=== PATIENT | female | born 1975 | race Caucasian/White ===

== ENCOUNTER → 2016-06-16 | Outpatient (CLI) | payer BC, OTHER ==
[2016-06-16 12:03] LABS: ALT 29 U/L (9-52); AST 23 U/L (14-36); Alkaline Phosphatase 80 U/L (38-126); Anion Gap 10 mmol/L; Blood Urea Nitrogen 12 mg/dL (7-17); Calcium 9.5 mg/dL (8.4-10.2); Carbon Dioxide 25 mmol/L (22-30); Chloride 105 mmol/L (98-107); Cholesterol 148 mg/dL (<200); Glucose 85 mg/dL (74-99); HDL Cholesterol 20 mg/dL (40-60); Non-African American GFR(MDRD) >60 (>60 ml/min/1.73 sqM); Potassium 4.6 mmol/L (3.5-5.1); Sodium 140 mmol/L (137-145); Total Bilirubin 0.7 mg/dL (0.2-1.3); Total Protein 7.1 g/dL (6.3-8.2); Triglycerides 267 mg/dL (<150)
[2016-06-16 12:19] LABS: CH 32.2; CHCM 36.4; HCT 44.7 % (34.0-46.0); HDW 3.06; HGB 15.7 gm/dL (11.4-16.0); MCH 31.2 pg (25.0-35.0); MCHC 35.2 g/dL (31.0-37.0); MCV 88.5 fL (80.0-100.0); Mean Platelet Volume 8.6; RBC 5.05 m/uL (3.80-5.40); WBC 11.1 k/uL (3.8-10.6)
== END | disposition home or self-care (01) ==
LOC: LABWHC1 11:03
PROVIDERS: ATTEND Internal Medicine Clinical Cardiac Electrophysiology
DX: E78.5 Hyperlipidemia, unspecified (principal); R00.2 Palpitations; R63.5 Abnormal weight gain
CPT/HCPCS: 36415; 80053; 80061; 84443; 85027

== ENCOUNTER 2016-07-21 22:13 | Emergency (ER) | payer BC, OTHER ==
[2016-07-21 22:37] VITALS: TEMP 98.7
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
[2016-07-22 00:10] VITALS: BP 140/71; PULSE 90; RESP 19
== END 2016-07-22 00:10 | disposition home or self-care (01) ==
LOC: EC 22:13
DX: T59.811A Toxic effect of smoke, accidental (unintentional), initial encounter (principal); J70.5 Respiratory conditions due to smoke inhalation; Z79.899 Other long term (current) drug therapy; Z91.048 Other nonmedicinal substance allergy status; Z87.891 Personal history of nicotine dependence
CPT/HCPCS: 71020; 82375; 99285

== ENCOUNTER → 2016-11-03 | Outpatient (CLI) | payer BC, OTHER ==
[2016-11-03 13:41] VITALS: BP 120/82; PULSE 92; RESP 16; TEMP 98.5
--- NOTE | 2016-11-03 14:08 | P.PN ---
Progress Note - Text Patient returns for followup for chronic back pain with radiation to hips. Patient recently underwent bilateral RFA last summer, which has provided some relief for interval but pain began to increase since June 2016. Patient continues on tramadol medications from PCP for pain with good relief. Patient denies adverse drug effects from medications. Today, pt denies new-onset weakness, bowel/bladder incontinence, or any other signs or symptoms of cauda equina syndrome. There are no signs of acute intoxication, and no indications of medication diversion or overuse. In addition to above, 13-point review of systems is also negative for chest pain , shortness of breath, changes in vision, changes in hearing, new onset weakness , abdominal pain, diarrhea, extreme fatigue, malaise, fever, skin changes, homicidal or suicidal ideation, or bowel or bladder incontinence. Vital Signs: Reviewed in EMR Gen: WDWN, AAOx3, NAD, obese HEENT: NCAT, EOMI, hearing grossly normal Pulm: resp unlabored Abd: soft, NT, ND Neck: supple, trachea midline ROM in flexion lumbar spine: reduced ROM in extension lumbar spine: reduced Lumbar paravertebral tenderness: + Facet loading: + bilaterally, R > L Neuro: CN II-XII grossly intact, muscle strength lower extremities PRESERVED Imaging: Reviewed in EMR Assessment: 1. morbid obesity 2. lumbar spondylosis without myelopathy 3. sacroiliitis Plan: 1. Explanation: Opioid and psychological risk scores were reviewed. Diagnoses , prognoses, and multiple treatment options including but not limited to physical therapy, interventional therapies, adjuvant medical therapies, narcotic medication therapies, and surgery were discussed with the patient and all questions were answered to the patient's satisfaction. 2. Opioid agreement: no opioids prescribed today 3. Counseling: The patient was counseled extensively on BODY MASS INDEX, EXERCISE. Specifically, the patient was instructed regarding the importance of obesity, and exercise in the context of both chronic pain and overall health. 4. Procedures: R lumbar RFA 5. Consultations: None 6. Investigations: None 7. Medications: none prescribed 8. Disposition: f/u for procedure as scheduled PQRS measures: 1-Patient's medications are documented in the chart. 2-Tobacco use is negative, counseling NOT given 3-Patient has had a pneumococcal vaccine. 4-Advanced care planning discussed, patient unable to give. 5-Opioid contract signed with the patient. 6-Pain positive, follow-up visit or procedure scheduled 7-Patient's blood pressure measured and documented, and patient will follow up with the primary care due to hypertension. 8-Patient's weight was measured, and body mass index ABOVE the normal limits, and counseling was done. Patient instructed to follow up with PCP. 9-Patient WAS NOT identified as an unhealthy alcohol user.
== END | disposition home or self-care (01) ==
LOC: PNWHC3 13:22
PROVIDERS: ATTEND Anesthesiology
DX: M47.816 Spondylosis without myelopathy or radiculopathy, lumbar region (principal); M46.1 Sacroiliitis, not elsewhere classified; E66.01 Morbid (severe) obesity due to excess calories
CPT/HCPCS: 99211

== ENCOUNTER 2016-11-11 08:41 | Day surgery (SDC) | payer BC, OTHER ==
[2016-11-05 12:39] VITALS: BMI 43.8
[~2016-11-11 08:41] MED LIST: LACTATED RINGERS 1,000 ML IV ONE
[2016-11-11 08:56] VITALS: RESP 16; TEMP 98.3
[2016-11-11 09:10] LABS: Glucose,Whole Blood 99 mg/dL (75-99)
[2016-11-11] MEDS ORDERED: DEXAMETHASONE SOD PHOS (MDV) 100 MG/10 ML VIAL ONE (09:13)
[2016-11-11] MEDS ORDERED: BUPIVACAINE (PF) 0.5% 30 ML VIAL ONE (09:13)
[2016-11-11] MEDS ORDERED: MIDAZOLAM 2 MG/2 ML VIAL ONE (09:13)
[2016-11-11] MEDS ORDERED: fentaNYL (PF) 50 MCG/ML 2 ML AMP ONE (09:13)
[2016-11-11] MEDS ORDERED: LIDOCAINE 1% 20 ML VIAL (10MG/ML) FOR IV START INTRADERMA ONE (09:17)
--- NOTE | 2016-11-11 09:54 | FL ---
FLUOROSCOPY 18 seconds of fluoroscopy time were utilized during Pain Injection. 3 images document the procedure.
--- NOTE | 2016-11-11 09:58 | P.PCN ---
Date of Procedure: 11/11/16 Preoperative Diagnosis: Postoperative Diagnosis: Procedure(s) Performed: PREOPERATIVE DIAGNOSIS: 1-Lumbar Spondylosis with Facet Arthropathy without myelopathy. 2- Lumber degenerative disc disease. POSTOPERATIVE DIAGNOSIS: 1- Lumbar Spondylosis with Facet Arthropathy without myelopathy. 2- Lumber degenerative disc disease. PROCEDURES : Right Radiofrequency thermocoagulation, L2-3 , L3-L4, L4-L5, and L5 -S1 medial branch, with fluoroscopic guidance ANESTHESIA: IV sedation with [id number] and fentaneyl 200 mcg and local infiltration with lidocaine 1% 4 ml EBL: Minimal PROCEDURE INDICATION: The patient with low back pain secondary to lumbar facet arthropathy who had more than 50% relief of her pain with previous diagnostic lumbar medial branch block with [email or web address] the RFA done more than 6 months ago,and she got good pain releife ,and she is here today for repeate, the radiofrequency ablation of the medial branch . PROCEDURE DESCRIPTION / TECHNIQUE: The patient was seen and identified in the preoperative area. Risks, benefits, complications, including but not limited to risk of infection ,bleeding , allergic reactions to the medications and no complete pain releife , and alternatives were discussed with the patient, the patient agreed to proceed with the procedure and signed the consent. IV was started. Vital signs remained stable throughout the procedure. Patient was taken to the OR and time out was completed. The patient was placed in the prone position on the procedure table. The lumber area was prepped and draped in the usual sterile fashion. . Vital signs were closely monitored during the procedure .IV sedation was used during the procedure to decrease patients anxiety. Using AP and then oblique fluoroscopy, the ``eye of the Pablo dog corresponding to the connection between the superior and transverse articular processes of right L2 , L3, L4, and L5 were identified, marked, and localized with 1% lidocaine. Subsequently, a 18 [id number] radiofrequency cannula with a 10-mm active tip was advanced guided by fluoroscopy to each of the ``eyes of the Pablo dogat right L2,L3, L4, and L5. Each site then underwent sensory testing at 50 Hz and 0 to 1 volt and motor testing at 2.5 Hz and 0 to 3 volt with local stimulation, but no radicular symptoms down the legs. Thereafter the right L2-3 ,L3-4, L4-5, and L5-S1 sites underwent radiofrequency thermocoagulation at 80 degrees celsius for 90 seconds after injecting 0.5 ml of PF lidocaine 1%. then After the thermocoagulation done , 1 ml of the block solution containing Dexamethasone 10 mg and 4 ml of marain 0.5% was injected at the right L2-3 ,L3-4 , L4-5 , and L5 -S1, levels after negative aspiration of CSF and blood and with no paresthesias. Cannulas were retracted while injecting lidocaine 1% until the needle is out. At the end of the procedure, the skin was cleansed and bandages were applied. COMPLICATIONS: No acute complications. DISPOSITION / PLANS: The patient was placed in a supine position and transferred to the recovery area in a stable condition for observation and was discharged from the recovery room after meeting discharge criteria. Home discharge instructions given to the patient by the staff. The patient was reexamined prior to discharge. The patient will schedule a follow up in the clinic in 2-4 weeks. Implants: Indications for Procedure: Operative Findings: Description of Procedure:
[2016-11-11] MEDS ORDERED: IV FLUID CONTINUATION 1,000 ML IV ONE (10:01)
[2016-11-11 10:15] VITALS: BP 124/63; PULSE 97
== END 2016-11-11 10:37 | disposition home or self-care (01) ==
LOC: ORPAIN 08:41
PROVIDERS: ATTEND Specialist
DX: M47.816 Spondylosis without myelopathy or radiculopathy, lumbar region (principal); M46.96 Unspecified inflammatory spondylopathy, lumbar region; M51.36 Other intervertebral disc degeneration, lumbar region; Z68.41 Body mass index [BMI] 40.0-44.9, adult; Z91.048 Other nonmedicinal substance allergy status
CPT/HCPCS: 64635; 64636; 99152; 99153; J2250; J3010; J1100

== ENCOUNTER 2016-12-08 07:29 | Day surgery (SDC) | payer BC, OTHER ==
[2016-12-07 08:52] VITALS: BMI 43.8
[~2016-12-08 07:29] MED LIST changes: -LACTATED RINGERS 1,000 ML IV ONE; +LACTATED RINGERS 1,000 ML IV SCH
[2016-12-08 08:10] VITALS: RESP 18; TEMP 98.3
[2016-12-08] MEDS ORDERED: LIDOCAINE 1% 20 ML VIAL (10MG/ML) FOR IV START INTRADERMA ONE (08:11)
[2016-12-08 08:27] LABS: Glucose,Whole Blood 93 mg/dL (75-99)
[2016-12-08] MEDS ORDERED: IV FLUID CONTINUATION 1,000 ML IV ONE (09:33)
[2016-12-08] MEDS ORDERED: ONDANSETRON 4 MG/2 ML VIAL IVP ONE (09:45)
[2016-12-08 09:48] VITALS: PULSE 69
[2016-12-08] MEDS ORDERED: HYDROmorphone 1 MG/ML 1 ML SYRINGE IVP ONE (10:08)
[2016-12-08 10:09] VITALS: BP 117/62
--- NOTE | 2016-12-08 10:13 | P.PCN ---
Date of Procedure: 12/08/16 Preoperative Diagnosis: Lumbar spondylosis without myelopathy Morbid obesity Postoperative Diagnosis: Same as above Procedure(s) Performed: Left lumbar medial branch radiofrequency ablation under fluoroscopic guidance for levels L2-L3, L3 4, L4-L5, and L5-S1. Implants: Anesthesia: other (Sedation with IV fentanyl and Versed) Surgeon: Eliseo Cancino Pathology: none sent Condition: stable Disposition: PACU Indications for Procedure: Operative Findings: Description of Procedure: The patient was seen in preoperative holding area consent was obtained then she was brought into the procedure room and placed in prone position. Skin was prepped with ChloraPrep and draped in a sterile manner. Lidocaine 1% was used to numb the skin up at the target points that were chosen as follows: For the L5 -S1 level which corresponds to the dorsal ramus of L5 the target point was at the superior medial aspect of the sacral ala on the left side of the spine on the AP view of fluoroscopy and for the L2, L3, and L4 medial branches the target points were at the connection between the transverse process and the superior articular process of L3, L4, and L5 vertebra respectively on the left oblique view of fluoroscopy. I used 18-gauge 150 mm in length with 10 mm curved active tip radiofrequency ablation needles for this procedure and I tried to place the active tips as parallel as possible to the medial branch tracks by going in a superio-medial direction. AP, oblique, and lateral views of fluoroscopy were used to verify needle tip position then motor stimulation showed only local twitches of these needles with no radiation of twitching to the left lower extremity. Motor stimulation showed only local twitches of these needles with no radiation of twitching to the left lower extremity. I then prepared a solution of 3 MLS Marcaine 0.5% +40 mg of Kenalog and I injected 1 mL of the solution in each needle. After that, radiofrequency ablation was started for 90 seconds at 80C and after the first session was done the needles were withdrawn by 1 or 2 mm and the bevels were turned 180 and another session ablation was started for 90 seconds at 80C. Patient tolerated procedure well.
--- NOTE | 2016-12-08 10:18 | FL ---
Fluoroscopy HISTORY: Pain 48 seconds fluoroscopy time supplied to the referring clinician. 2 intraoperative C-arm images docum ent the procedure. See dictated report from anesthesia.
== END 2016-12-08 10:36 | disposition home or self-care (01) ==
LOC: ORPAIN 07:29
PROVIDERS: ATTEND Anesthesiology
DX: M47.816 Spondylosis without myelopathy or radiculopathy, lumbar region (principal); E66.01 Morbid (severe) obesity due to excess calories
CPT/HCPCS: 64635; 64636 ×3; 99152; 99153 ×2; J2250; J3301; J2405; J3010; J1170

== ENCOUNTER → 2016-12-22 | Outpatient (CLI) | payer BC, OTHER ==
[2016-12-22 14:58] VITALS: PULSE 85; RESP 16; TEMP 98.2
--- NOTE | 2016-12-22 15:01 | P.PN ---
Progress Note - Text Patient returns for followup for chronic back pain with radiation to hips. Patient recently underwent bilateral RFA in November and December and states that pain is improved significantly in the low back and she complains only of some minor twinges in her low back from time to time. Patient continues on tramadol medications from PCP for pain with good relief. Patient denies adverse drug effects from medications. Today, pt denies new-onset weakness, bowel/bladder incontinence, or any other signs or symptoms of cauda equina syndrome. There are no signs of acute intoxication, and no indications of medication diversion or overuse. In addition to above, 13-point review of systems is also negative for chest pain , shortness of breath, changes in vision, changes in hearing, new onset weakness , abdominal pain, diarrhea, extreme fatigue, malaise, fever, skin changes, homicidal or suicidal ideation, or bowel or bladder incontinence. Vital Signs: Reviewed in EMR Gen: WDWN, AAOx3, NAD, obese HEENT: NCAT, EOMI, hearing grossly normal Pulm: resp unlabored Abd: soft, NT, ND Neck: supple, trachea midline ROM in flexion lumbar spine: reduced ROM in extension lumbar spine: reduced Lumbar paravertebral tenderness: + Facet loading: + bilateral Neuro: CN II-XII grossly intact, muscle strength lower extremities PRESERVED Imaging: Reviewed in EMR Assessment: 1. morbid obesity 2. lumbar spondylosis without myelopathy 3. sacroiliitis Plan: 1. Explanation: Opioid and psychological risk scores were reviewed. Diagnoses , prognoses, and multiple treatment options including but not limited to physical therapy, interventional therapies, adjuvant medical therapies, narcotic medication therapies, and surgery were discussed with the patient and all questions were answered to the patient's satisfaction. 2. Opioid agreement: no opioids prescribed today 3. Counseling: The patient was counseled extensively on BODY MASS INDEX, EXERCISE. Specifically, the patient was instructed regarding the importance of obesity, and exercise in the context of both chronic pain and overall health. 4. Procedures: none for now 5. Consultations: None 6. Investigations: None 7. Medications: none prescribed 8. Disposition: f/u as needed; patient can call for further RFAs as needed. Of note, the patient was warned regarding the synergistic effects of benzodiazepines and opioids in terms of sedation, nausea, and respiratory depression possibly resulting in . The patient verbalized understanding and acceptance of these risks. PQRS measures: 1-Patient's medications are documented in the chart. 2-Tobacco use is negative, counseling NOT given 3-Patient has had a pneumococcal vaccine. 4-Advanced care planning discussed, patient unable to give. 5-Opioid contract signed with the patient. 6-Pain positive, follow-up visit or procedure scheduled 7-Patient's blood pressure measured and documented, and patient will follow up with the primary care due to hypertension. 8-Patient's weight was measured, and body mass index ABOVE the normal limits, and counseling was done. Patient instructed to follow up with PCP. 9-Patient WAS NOT identified as an unhealthy alcohol user.
== END ==
LOC: PNWHC3 14:19
PROVIDERS: ATTEND Anesthesiology
DX: M47.816 Spondylosis without myelopathy or radiculopathy, lumbar region (principal); M46.1 Sacroiliitis, not elsewhere classified; E66.01 Morbid (severe) obesity due to excess calories
CPT/HCPCS: 99211

== ENCOUNTER → 2017-02-10 | Outpatient (CLI) | payer BC, OTHER ==
--- NOTE | 2017-02-14 08:18 | MM ---
Reason for exam: additional evaluation requested from prior study. Last mammogram was performed 1 year and 6 months ago. History: Family history of breast cancer in maternal aunt and breast cancer in 3 paternal cousins. Benign US biopsy breast VAD LT of the left breast, September 15, 2015. Took hormonal contraceptives for 10 years. Physical Findings: Nurse did not find any significant physical abnormalities on exam. MG 3D Diag Mammo W/Cad CATHERINE Bilateral CC and MLO view(s) were taken. XCCL view(s) were taken of the right breast. Prior study comparison: August 15, 2015, bilateral MG screening mammo w CAD. There are scattered fibroglandular densities. There is chronic nodularity in the left breast likely corresponding to the 4 o'clock biopsied lymph node. Small nodular asymmetry posteriorly and laterally in the right breast is now better seen, possibly new. This should be reassessed in 6 months. These results were verbally communicated with the patient and result sheet given to the patient on 02/10/17. ASSESSMENT: Incomplete: need additional imaging evaluation, BI-RAD 0 RECOMMENDATION: Ultrasound of the left breast. (as ordered)
--- NOTE | 2017-02-14 08:28 | USB ---
Reason for exam: follow-up at short interval from prior study. History: Family history of breast cancer in maternal aunt and breast cancer in 3 paternal cousins. Benign US biopsy breast VAD LT of the left breast, September 15, 2015. Took hormonal contraceptives for 10 years. US Breast LT Left breast ultrasound includes all four quadrants, the retroareolar region and axilla. Finding demonstrates a 0.6 x 0.5 x 0.4cm oval node at 4 o'clock versus 7 x 7 x 6mm previously, corresponding to the biopsied node, no clips was placed and a 0.3 x 0.3 x 0.2cm adjacent oval, cystic, benign lesion at 4 o'clock. These results were verbally communicated with the patient and result sheet given to the patient on 02/10/17. ASSESSMENT: Probably benign, BI-RAD 3 RECOMMENDATION: Follow-up diagnostic mammogram in 6 months. (right breast)
== END | disposition home or self-care (01) ==
LOC: RADMAMWWP 14:08
PROVIDERS: ATTEND Obstetrics & Gynecology
DX: R92.8 Other abnormal and inconclusive findings on diagnostic imaging of breast (principal)
CPT/HCPCS: 76641; G0204; G0279

== ENCOUNTER 2017-06-14 11:53 | Emergency (ER) | payer BC, OTHER ==
[2017-06-14 12:08] VITALS: RESP 18
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
[2017-06-14] MEDS ORDERED: ACETAMINOPHEN IV (For NPO) 1,000 MG in EMPTY BAG 1 BAG IVPB STA (13:47)
[2017-06-14] MEDS ORDERED: SODIUM CHLORIDE 0.9% 1,000 ML IV STA (13:47)
[2017-06-14] MEDS ORDERED: ONDANSETRON 4 MG/2 ML VIAL IVP STA ×2 (13:47→15:01)
[2017-06-14 14:35] LABS: Appearance,Urine Cloudy (Clear); Bacteria,Urine Few /hpf; Bilirubin,Urine 1+ (Negative); Blood,Urine Negative (Negative); Color,Urine Dark Yellow; Glucose,Urine (UA) Negative (Negative); Hyaline Casts,Urine 17 /lpf (0-2); Ketones,Urine Trace (Negative); Leukocyte Esterase,Urine Negative (Negative); Mucus,Urine Many /hpf; Nitrite,Urine Negative (Negative); Protein,Urine 1+ (Negative); RBC,Urine 3 /hpf (0-5); Specific Gravity,Urine 1.034 (1.001-1.035); Squamous Epithelial Cell,Urine 9 /hpf (0-4); WBC,Urine 8 /hpf (0-5)
[2017-06-14 14:38] LABS: HGB 15.8 gm/dL (11.4-16.0); MCH 30.6 pg (25.0-35.0); MCHC 34.4 g/dL (31.0-37.0); MCV 88.9 fL (80.0-100.0); Mean Platelet Volume 8.8; Platelet Count 446 k/uL (150-450); RBC 5.17 m/uL (3.80-5.40); RDW 12.7 % (11.5-15.5); WBC 7.3 k/uL (3.8-10.6)
--- NOTE | 2017-06-14 14:40 | XR ---
EXAMINATION TYPE: XR chest 2V DATE OF EXAM: 06/14/2017 COMPARISON: 07/21/2016 HISTORY: Chest pain TECHNIQUE: Frontal and lateral views of the chest are obtained. FINDINGS: There is no focal air space opacity. No evidence for pneumothorax. No pleural effusion. The cardiac silhouette size is within normal limits. The osseous structures are grossly intact. IMPRESSION: 1. No acute cardiopulmonary process.
[2017-06-14 14:44] LABS: ALT 39 U/L (9-52); AST 48 U/L (14-36); Albumin 3.7 g/dL (3.5-5.0); Alkaline Phosphatase 75 U/L (38-126); Anion Gap 11 mmol/L; Blood Urea Nitrogen 19 mg/dL (7-17); Calcium 9.6 mg/dL (8.4-10.2); Carbon Dioxide 23 mmol/L (22-30); Chloride 106 mmol/L (98-107); Glucose 79 mg/dL (74-99); Potassium 4.3 mmol/L (3.5-5.1); Sodium 140 mmol/L (137-145); Total Bilirubin 0.3 mg/dL (0.2-1.3); Total Protein 6.6 g/dL (6.3-8.2)
[2017-06-14 15:25] LABS: Band Neutrophils % 3 %; Eosinophils # (M) 0.37 k/uL (0-0.7); Lymphocytes # (M) 4.16 k/uL (1.0-4.8); Monocytes # (M) 0.58 k/uL (0-1.0); Neutrophils % (M) 27 %; Nucleated Red Blood Cells 0 /100 WBC (0-0); Total Cells Counted 100
[2017-06-14 15:26] LABS: Howell-Jolly Bodies Present; Large Platelets Present
[2017-06-14] MEDS ORDERED: diphenhydrAMINE 50 MG/ML 1 ML VIAL IVP STA (15:46)
[2017-06-14] MEDS ORDERED: METOCLOPRAMIDE 5 MG/ML 2 ML VIAL IVP STA (15:46)
[2017-06-14 15:57] VITALS: BP 126/59; PULSE 66; TEMP 97.4
== END 2017-06-14 17:03 | disposition home or self-care (01) ==
LOC: EC 11:53
DX: R11.2 Nausea with vomiting, unspecified (principal); R19.7 Diarrhea, unspecified; R50.9 Fever, unspecified; R52 Pain, unspecified; M19.90 Unspecified osteoarthritis, unspecified site; Z87.891 Personal history of nicotine dependence; Z79.82 Long term (current) use of aspirin; Z79.899 Other long term (current) drug therapy; Z91.09 Other allergy status, other than to drugs and biological substances; Z86.14 Personal history of Methicillin resistant Staphylococcus aureus infection; Z86.2 Personal history of diseases of the blood and blood-forming organs and certain disorders involving the immune mechanism
CPT/HCPCS: 36415; 80053; 83605; 85025; 81001; 87040; 87502; 71046; 99283; 96374; 96375 ×3; 96376; 96361; J1200; J2765; J2405; J0131

== ENCOUNTER 2017-06-15 11:06 | Observation (INO) | payer BC ==
[2017-06-15] MEDS ORDERED: METOCLOPRAMIDE 5 MG/ML 2 ML VIAL IVP STA (11:25)
[2017-06-15] MEDS ORDERED: PANTOPRAZOLE 40 MG/10 ML VIAL IVP STA (11:25)
[2017-06-15] MEDS ORDERED: MORPHINE SULFATE 4 MG/ML SYRINGE IV STA ×2 (11:25→15:02)
[2017-06-15] MEDS ORDERED: SODIUM CHLORIDE 0.9% 1,000 ML IV STA ×2 (11:25)
[2017-06-15] MEDS ORDERED: RX INFO: IV CONTRAST WAS GIVEN 1 EACH MISC MISCELLANE PRN (11:25)
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
[2017-06-15 12:17] LABS: ALT 35 U/L (9-52); AST 31 U/L (14-36); Albumin 3.6 g/dL (3.5-5.0); Alkaline Phosphatase 63 U/L (38-126); Amylase 32 U/L (30-110); Anion Gap 10 mmol/L; Blood Urea Nitrogen 20 mg/dL (7-17); Calcium 9.5 mg/dL (8.4-10.2); Carbon Dioxide 24 mmol/L (22-30); Chloride 108 mmol/L (98-107); Glucose 82 mg/dL (74-99); Lipase 59 U/L (23-300); Partial Thromboplastin Time 23.4 sec (22.0-30.0); Potassium 4.3 mmol/L (3.5-5.1); Prothrombin Time 9.7 sec (9.0-12.0); Sodium 142 mmol/L (137-145); Total Bilirubin 0.3 mg/dL (0.2-1.3); Total Protein 6.4 g/dL (6.3-8.2)
[2017-06-15 12:46] LABS: Basophils # (A) 0.1 k/uL (0-0.2); Basophils % (A) 1 %; Eosinophils # (A) 0.2 k/uL (0-0.7); Eosinophils % (A) 2 %; HCT 44.1 % (34.0-46.0); HGB 15.4 gm/dL (11.4-16.0); Lymphocytes # (A) 3.6 k/uL (1.0-4.8); Lymphocytes % (A) 51 %; MCH 31.5 pg (25.0-35.0); MCHC 34.8 g/dL (31.0-37.0); MCV 90.6 fL (80.0-100.0); Mean Platelet Volume 9.6; Monocytes # (A) 0.5 k/uL (0-1.0); Monocytes % (A) 7 %; Neutrophils # (A) 2.5 k/uL (1.3-7.7); Neutrophils % (A) 35 %; Platelet Count 416 k/uL (150-450); RBC 4.87 m/uL (3.80-5.40); RDW 12.6 % (11.5-15.5)
[2017-06-15 13:07] LABS: Anisocytosis (M) Present; Howell-Jolly Bodies Present; Large Platelets Present; Poikilocytosis (M) Present
--- NOTE | 2017-06-15 13:17 | CT ---
EXAMINATION TYPE: CT abdomen pelvis w con DATE OF EXAM: 06/15/2017 HISTORY: Left upper quadrant pain since yesterday. History of lap band. CT DLP: 1960mGycm Automated Exposure Control for Dose Reduction was Utilized. CONTRAST: CT scan of the abdomen and pelvis is performed without oral but with IV Contrast, patient injected wi th 100 mL of Omnipaque 300. COMPARISON: CT abdomen pelvis November 23, 2015 FINDINGS: LUNG BASES: No significant abnormality is appreciated. LIVER/GB: Cholecystectomy clips are redemonstrated. PANCREAS: No significant abnormality is seen. SPLEEN: Spleen is not visualized and may be congenitally or surgically absent similar to prior. Corre late clinically. ADRENALS: No significant abnormality is seen. KIDNEYS: Scattered pelvic phleboliths are redemonstrated. BOWEL: Lap band device is satisfactory and stable in position. There is no suspicious small or large bowel dilatation. Normal-appearing appendix is seen from cecum in the right midabdomen axial image 52 . UTERUS/[place]: Uterus is atrophic in appearance or surgically absent. Remnant ovaries are seen on axi al image 69 and not suspiciously enlarged. LYMPH NODES: No greater than 1cm abdominal or pelvic lymph nodes are appreciated. OSSEOUS STRUCTURES: There is moderate disc space narrowing and spurring L4-L5 and moderate disc space narrowing L5 -L6 levels redemonstrated. There is transitional-type L6 vertebra sacralized on the rig ht. OTHER: No significant additional abnormality is seen. IMPRESSION: No significant new or acute finding is seen to account for patient's clinical symptoms.
[2017-06-15] MEDS ORDERED: LEVOFLOXACIN 500MG-D5W PMX 500 MG in DEXTROSE/WATER 1 100ML.BAG IVPB STA (15:02)
[2017-06-15] MEDS ORDERED: MORPHINE SULFATE 4 MG/ML SYRINGE IV PRN (15:05)
[2017-06-15] MEDS ORDERED: NALOXONE 0.4 MG/ML 1 ML VIAL IV PRN (15:05)
[2017-06-15] MEDS ORDERED: ACETAMINOPHEN TAB 325 MG TAB PO PRN (15:05)
[2017-06-15] MEDS ORDERED: ALPRAZolam 0.25 MG TAB PO PRN (15:11)
[2017-06-15] MEDS: ONDANSETRON 4 MG/2 ML VIAL IVP PRN ×2 (15:26→20:38)
[2017-06-15] MEDS ORDERED: traMADol 50 MG TAB PO PRN (17:18)
[2017-06-15 17:19] LABS: Appearance,Urine Clear (Clear); Bilirubin,Urine Negative (Negative); Blood,Urine Negative (Negative); Color,Urine Light Yellow; Glucose,Urine (UA) Negative (Negative); Ketones,Urine Negative (Negative); Leukocyte Esterase,Urine Negative (Negative); Nitrite,Urine Negative (Negative); Protein,Urine Negative (Negative); Specific Gravity,Urine 1.033 (1.001-1.035); Urobilinogen,Urine <2.0 mg/dL (<2.0)
[2017-06-15] MEDS ORDERED: HYDROmorphone 4 MG/ML 1 ML SYRINGE IVP PRN (17:19)
[2017-06-15] MEDS ORDERED: TEMAZEPAM 15 MG CAP PO PRN (17:19)
[2017-06-15] MEDS: PANTOPRAZOLE 40 MG/10 ML VIAL IV SCH (17:46)
[2017-06-15] MEDS: SODIUM CHLORIDE 0.9% 1,000 ML IV SCH (17:47)
[2017-06-15] MEDS: METOCLOPRAMIDE 5 MG/ML 2 ML VIAL IVP PRN (17:50)
--- NOTE | 2017-06-15 21:38 | HP ---
HISTORY AND PHYSICAL DATE OF ADMISSION: 06/15/2017 CHIEF COMPLAINT: Abdominal pain and fever. HISTORY OF PRESENT ILLNESS: This 41-year-old woman with a past medical history of multiple medical problems including GERD, history of cirrhosis, history of splenectomy, history of hypoglycemia, history of Raymond anemia, history of kidney stone, history of MRSA, history of back surgery, history of bariatric surgery, history of splenectomy, being followed by Dr. Wilkes in the outpatient setting was complaining of abdominal symptoms. Patient initially had nausea and vomiting, diarrhea. Subsequently patient had severe abdominal pain which is mostly in the upper abdomen. The patient also had a fever and the patient came to [facility] and admitted for evaluation and treatment. There is no history any headache, loss of consciousness or seizures. There is no history of chest pain, palpitations, hematochezia or melena. PAST MEDICAL HISTORY: History of DJD, history of splenectomy in the family, history of back surgery, history of hysterectomy. MEDICATIONS: Prior to admission include home medications are as before medications: 1. Ultram 50 mg q.8h p.r.n. 2. Reglan 10 mg q.6h p.r.n. 3. Vitamin D3 1 tab daily. 4. Vitamin B2 1 tab p.o. daily. 5. Multivitamin one daily. 6. Motrin 800 mg q.8h p.r.n. 7. Iron sulfate 325 mg p.o. daily. 8. Calcium 600 mg. 9. Aspirin 81 mg daily. 10.Xanax 0.5 daily p.r.n. ALLERGIES: noted FAMILY HISTORY: History of cancer, history of CAD, COPD, TB, spherocytosis, melanoma. SOCIAL HISTORY: Previous history of smoking. No history of current smoking. Occasional alcohol intake. REVIEW OF SYSTEMS: ENT: No diminished hearing or vision. CARDIOVASCULAR: No angina or palpitations. RESPIRATORY: No cough. GI: As mentioned earlier. no dysuria. Nervous System: No numbness or weakness. ALLERGY/IMMUNOLOGY: As mentioned earlier. Musculoskeletal: As mentioned earlier. Hematology/Oncology: No history of anemia. Endocrine: No history of diabetes or hypothyroidism. Constitutional: As mentioned earlier. Dermatology: Negative. Rheumatology: Negative. Psychiatric: As mentioned earlier. PHYSICAL EXAM: The patient is alert and oriented times three. Pulse is 64, blood pressure 112/ 52, respiration 18, temperature is 100.4, pulse ox 99% on room air. HEENT: Conjunctivae normal. Oral mucosa moist. Neck is no jugular venous distention. No carotid bruit. No lymph nodes enlargement. Cardiovascular: S1, S2 muffled. Respiratory: Breath sounds diminished in the bases. A few scattered rhonchi and crackles. ABDOMEN: Soft, obese, mild diffuse tenderness. No guarding. No rigidity. There is no mass palpable. Legs: No edema. No swelling. NERVOUS SYSTEM: Higher functions as mentioned earlier. Moves all four limbs. No focal motor or sensory deficits. Lymphatics: No lymph nodes palpable in the neck, axillae or groin. SKIN: No ulcer, rash or bleeding. LABS: CBC within normal. Lactic acid is normal. Sodium 142. Influenza is negative. ASSESSMENT: 1. Abdominal pain, nausea and vomiting and diarrhea, fever, rule out sepsis. 2. Possible acute gastroenteritis. 3. History of degenerative joint disease. 5. Gastroesophageal reflux disease. 6. History of migraines. 7. History of hypoglycemia. 8. History of lap band surgery. 9. History of iron deficiency anemia. 10.History of nephrolithiasis. 11.History of degenerative joint disease and back pain, herniated disc. 12.History of MRSA. 13.History of anxiety. RECOMMENDATION AND DISCUSSION: In this 41-year-old woman who presented with multiple complex medical issues at this time I recommend to continue current medications, management and symptomatic treatment. Otherwise I recommend broad-spectrum IV antibiotics, symptomatic treatment and Infectious disease evaluation and n.p.o. Until the patient is improving. Otherwise, we will continue to monitor. Prognosis guarded because of multiple complex medical issues. Further recommendations to follow. Copy of dictation being forwarded to Dr. Wilkes who is the primary care physician. See orders for details. MMODL / IJN: [id number] / MTDD
[2017-06-16] MEDS: METOCLOPRAMIDE 5 MG/ML 2 ML VIAL IVP PRN ×4 (00:17→21:05)
[2017-06-16] MEDS: HYDROcodone/APAP 5-325MG 1 EACH TAB PO PRN ×3 (03:57→19:59)
[2017-06-16] MEDS: SODIUM CHLORIDE 0.9% 1,000 ML IV SCH ×3 (05:18→23:30)
[2017-06-16] MEDS: ONDANSETRON 4 MG/2 ML VIAL IVP PRN (07:07)
[2017-06-16 08:31] LABS: Basophils % (A) 1 %; Eosinophils # (A) 0.1 k/uL (0-0.7); Eosinophils % (A) 1 %; HCT 43.7 % (34.0-46.0); HGB 14.8 gm/dL (11.4-16.0); Lymphocytes # (A) 3.5 k/uL (1.0-4.8); Lymphocytes % (A) 60 %; MCHC 33.8 g/dL (31.0-37.0); MCV 91.6 fL (80.0-100.0); Mean Platelet Volume 8.6; Monocytes # (A) 0.4 k/uL (0-1.0); Monocytes % (A) 7 %; Neutrophils # (A) 1.6 k/uL (1.3-7.7); Neutrophils % (A) 27 %; Platelet Count 479 k/uL (150-450); RBC 4.77 m/uL (3.80-5.40); RDW 12.5 % (11.5-15.5); WBC 5.8 k/uL (3.8-10.6)
[2017-06-16 08:50] LABS: ALT 97 U/L (9-52); AST 160 U/L (14-36); Albumin 3.3 g/dL (3.5-5.0); Alkaline Phosphatase 114 U/L (38-126); Anion Gap 10 mmol/L; Blood Urea Nitrogen 9 mg/dL (7-17); Calcium 9.3 mg/dL (8.4-10.2); Carbon Dioxide 24 mmol/L (22-30); Chloride 107 mmol/L (98-107); Glucose 89 mg/dL (74-99); Sodium 141 mmol/L (137-145); Total Bilirubin 0.4 mg/dL (0.2-1.3); Total Protein 6.1 g/dL (6.3-8.2)
[2017-06-16] MEDS: ENOXAPARIN 40 MG/0.4 ML SYRINGE SQ SCH (08:50)
[2017-06-16] MEDS: CYANOCOBALAMIN 500 MCG TAB PO SCH (08:50)
[2017-06-16] MEDS: CHOLECALCIFEROL 400 UNIT TAB PO SCH (08:50)
[2017-06-16] MEDS: MULTIVITAMINS, THERA 1 EACH TAB PO SCH (08:50)
[2017-06-16] MEDS: CALCIUM CARBONATE 500 MG CHEWABLE PO SCH (08:50)
[2017-06-16] MEDS: PANTOPRAZOLE 40 MG/10 ML VIAL IV SCH ×2 (08:50→21:33)
[2017-06-16] MEDS ORDERED: FERROUS SULFATE 325 MG TAB PO SCH (09:00)
[2017-06-16] MEDS ORDERED: PANTOPRAZOLE 40 MG/10 ML VIAL IV SCH (09:00)
[2017-06-16] MEDS ORDERED: ASPIRIN 81 MG PO SCH (09:00)
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
[2017-06-16] MEDS: LEVOFLOXACIN 500MG-D5W PMX 500 MG in DEXTROSE/WATER 1 100ML.BAG IVPB SCH (15:35)
--- NOTE | 2017-06-16 16:54 | PN ---
PROGRESS NOTE DATE OF SERVICE: 06/16/2017 This 41-year-old woman was admitted with abdominal pain, nausea, vomiting and diarrhea and fever also thought to have acute gastroenteritis. The possibility of sepsis also considered. Patient is on IV antibiotics. Cultures are negative so far. Lactic acid is normal and infectious disease evaluation in progress. There is no history of fever, rigors. This patient is slightly better, still nauseated and abdominal pain, diarrhea is subsided. Abdominal pain is still present. EXAM: Alert and oriented x3. Pulse 71, blood pressure 108/60, respirations 16, temperature 98.6, pulse ox 97% on room air. HEENT is conjunctivae normal. Neck: No jugular venous distention. Cardiovascular systems: S1, S2. Respiration: Breath sounds diminished in the bases. No rhonchi. No crackles. Abdomen is soft. Mild diffuse discomfort present. No guarding or rigidity. No mass palpable. Legs: Legs are no edema , no swelling. No focal deficits. LABS: Platelets of 479. Other labs are AST is 160 and ALT is 97. ASSESSMENT: 1. Abdominal pain, nausea, vomiting, diarrhea, fever, rule out sepsis. 2. Possible acute gastroenteritis. 3. Elevated AST and ALT. 4. History of degenerative joint disease. 5. Gastroesophageal reflux disease. 6. History of migraines. 7. History of hypoglycemia. 8. History of lap band surgery. 9. History of iron deficiency anemia. 10.History of nephrolithiasis. 11.History of degenerative joint disease and back pain. 12.Herniated disc. 13.History of MRSA. 14.History of anxiety. RECOMMENDATIONS AND DISCUSSION: Recommend to continue current medications, management and symptomatic treatment. Otherwise at this time, continue to advance the we will also obtain surgical consultation. Advance diet and continue to monitor. Further recommendations to follow. MMODL / IJN: [id number] / MTDD
[2017-06-16 17:14] LABS: Hepatitis A Antibody IgM Non-Reactive (Non-Reactive); Hepatitis B Core IgM Non-Reactive (Non-Reactive)
[2017-06-16 19:08] LABS: Phencyclidine Screen,Urine Not Detected (NotDetected); Urn Cannabinoid Scrn Not Detected (NotDetected)
[2017-06-16 19:09] LABS: Amphetamine Screen,Urine Not Detected (NotDetected); Barbiturate Screen,Urine Not Detected (NotDetected); Benzodiazepines Screen,Urine Not Detected (NotDetected); Cocaine Screen,Urine Not Detected (NotDetected); Methadone Screen, Urine Not Detected (NotDetected); Opiate Screen,Urine Detected (NotDetected); Oxycodone Screen, Urine Not Detected (NotDetected); Tricyclic Antidepressant,Urine Not Detected (NotDetected)
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
[2017-06-16] MEDS: MORPHINE SULFATE 4 MG/ML SYRINGE IVP PRN (21:06)
--- NOTE | 2017-06-16 21:37 | XR ---
EXAMINATION TYPE: XR chest 1V portable DATE OF EXAM: 06/16/2017 CLINICAL HISTORY: Difficulty breathing and pneumonia progress study. TECHNIQUE: Single AP portable upright view of the chest is obtained. COMPARISON: Chest x-ray from 2 days earlier. FINDINGS: Cardiac silhouette size is mildly enlarged on current study. Lungs remain clear without pl eural effusion or pneumothorax seen bilaterally. Osseous structures are intact. IMPRESSION: Cardiomegaly without acute pulmonary process.
--- NOTE | 2017-06-16 22:31 | P.CON ---
Consult Note - . Consult date: 06/16/17 Assessment/Plan:: This is a 41-year-old female who was seen by ID service in 2014 as there was concern for discitis which was ruled out at that time. 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 Her mother was recently diagnosed with influenza and the patient was placed on Tamiflu prophylactically but did not start taking this until Tuesday when she developed a cough and fever and chills. She saw her primary care physician on Tuesday and was placed on Zofran. Patient presented to [facility] emergency center on Tuesday complaining of body aches, fever and chills, nausea and vomiting and diarrhea that been going on for 2 days. A chest x-ray showed no acute cardiopulmonary process. Blood cultures showing no growth at 24 hours. Lactic acid was 1, white count 7.3, urinalysis was clear with nitrate and leukoesterase negative. Influenza testing was also negative. Patient was given Reglan and discharged home. Patient came back on Tuesday complaining of abdominal pain in the left upper quadrant that been going on for one day along with fever and the continued nausea vomiting and diarrhea. She underwent a CAT scan of the abdomen and pelvis that showed no significant acute finding. Her temperature max was 100.4 with white count of 7. Creatinine 0.7. AST 160 and ALT 97. Urinalysis was clear with nitrate and leukoesterase negative and again influenza testing was negative. Lactic acid was 1. Urine and blood culture are both status received. Patient was started on Levaquin and admitted to the [facility] floor. Patient does state that on Tuesday the nausea became much worse and she has been having blood in her stools with blood clots for the past 2 weeks and was placed on hemorrhoid cream. Patient continues to have nausea and vomiting as not had anything to eat or drink. She also continues to have left sided abdominal pain. She has developed a cough this morning but also complains of nasal congestion. No sore throat. She denies any urinary symptoms, increased frequency, burning or pain with urination, flank pain. Please see the consult note is dictated by nurse practitioner Mrs. Amber Whittaker. The patient has not been seen by Dr. Lawrence of general surgery and will undergo endoscopy to further evaluate her lap band as a potential etiology of her significant abdominal discomfort. At this time cultures are in process and will de-escalate antibiotic therapy as quickly as possible. Patient does have a mildly elevated AST ALT which is new and hepatitis profile as requested. It is noted patient has history of splenectomy and until we have evidence of negative cultures antibiotic therapy is appropriate. Further education about preemptive antibiotics with febrile illness after discharge as well as ensuring vaccines are up-to-date will be helpful for her overall health given her splenectomy. I reviewed evaluation, assessment and plan is dictated by nurse practitioner Mrs. Amber Whittaker.
[2017-06-16 22:37] VITALS: RESP 18; TEMP 98.9
[2017-06-17] MEDS: HYDROcodone/APAP 5-325MG 1 EACH TAB PO PRN (04:59)
[2017-06-17] MEDS: ONDANSETRON 4 MG/2 ML VIAL IVP PRN (04:59)
[2017-06-17 07:57] VITALS: BP 145/88; PULSE 91
--- NOTE | 2017-06-17 08:26 | US ---
EXAMINATION TYPE: US abdomen limited DATE OF EXAM: 06/17/2017 COMPARISON: CT 06/15/2017 CLINICAL HISTORY: Elevated liver enzymes. Epigastric pain, nausea, vomiting. Cholecystectomy. Difficu lt and limited exam due to patient body habitus EXAM MEASUREMENTS: Liver Length: 19.0 cm Gallbladder Wall: Surgically absent CBD: 0.5 cm Right Kidney: 10.3 x 4.6 x 5.3 cm Pancreas: Tail obscured by overlying bowel gas, visualized portions show no abnormality Liver: Enlarged. Heterogeneous. Difficult and limited evaluation due to overlying bowel gas Gallbladder: Surgically absent Evidence for sonographic Cm's sign: No CBD: wnl as visualized, distal portion is obscured by bowel gas Right Kidney: No hydronephrosis or masses seen IMPRESSION: 1. Normal postcholecystectomy right upper quadrant ultrasound.
[2017-06-17 08:41] LABS: Basophils % (A) 1 %; Eosinophils # (A) 0.1 k/uL (0-0.7); Eosinophils % (A) 1 %; HCT 45.3 % (34.0-46.0); HGB 15.3 gm/dL (11.4-16.0); Lymphocytes # (A) 3.5 k/uL (1.0-4.8); Lymphocytes % (A) 48 %; MCHC 33.8 g/dL (31.0-37.0); MCV 91.8 fL (80.0-100.0); Mean Platelet Volume 8.3; Monocytes # (A) 0.4 k/uL (0-1.0); Monocytes % (A) 6 %; Neutrophils # (A) 3.1 k/uL (1.3-7.7); Neutrophils % (A) 43 %; Platelet Count 495 k/uL (150-450); RBC 4.93 m/uL (3.80-5.40); RDW 12.4 % (11.5-15.5); WBC 7.3 k/uL (3.8-10.6)
[2017-06-17 09:01] LABS: ALT 63 U/L (9-52); AST 73 U/L (14-36); Albumin 3.9 g/dL (3.5-5.0); Alkaline Phosphatase 96 U/L (38-126); Amylase 40 U/L (30-110); Anion Gap 13 mmol/L; Blood Urea Nitrogen 7 mg/dL (7-17); Calcium 9.9 mg/dL (8.4-10.2); Carbon Dioxide 21 mmol/L (22-30); Chloride 109 mmol/L (98-107); Glucose 97 mg/dL (74-99); Lipase 91 U/L (23-300); Potassium 4.6 mmol/L (3.5-5.1); Sodium 143 mmol/L (137-145); Total Bilirubin 0.6 mg/dL (0.2-1.3); Total Protein 6.7 g/dL (6.3-8.2)
[2017-06-17] MEDS ORDERED: IV FLUID CONTINUATION 1,000 ML IV ONE (09:22)
[2017-06-17] MEDS ORDERED: LIDOCAINE 1% INJ 10MG/ML (20 ML MDV) ONE (09:23)
[2017-06-17] MEDS ORDERED: PROPOFOL 10 MG/ML 20 ML VIAL IV ONE (09:23)
[2017-06-17] MEDS ORDERED: MIDAZOLAM 2 MG/2 ML VIAL ONE (09:23)
--- NOTE | 2017-06-17 09:35 | P.PCN ---
Date of Procedure: 06/17/17 Procedure(s) Performed: Preoperative Dx: Left upper quadrant abdominal pain Postoperative Dx: Mild gastritis Procedure: EGD with Bx Anesthesia: Sedation Endoscopist: Dr. Lawrence Specimens: Antrum Endoscopic Procedure: The patient was on the endoscopy table in the left decubitus position. The Olympus gastroscope was inserted into the oropharynx and passed under direct visualization to the region of the third portion of the duodenum. From that point the scope was slowly withdrawn inspecting all surfaces carefully. There were no neoplastic inflammatory or polypoid lesions throughout the duodenum. The pylorus was widely patent. The stomach was carefully inspected. There was mild gastritis present. A biopsy of the antrum took place to rule out H. pylori. Retroflexion revealed a normal band plication. There was no evidence of gastric erosion or prolapse. The proximal pouch appeared normal. The esophagus was then carefully examined. There were no neoplastic inflammatory or polypoid lesions throughout the visualized esophagus. The patient was then taken to the recovery room in stable condition per anesthesia guidelines. Recommendations: Await biopsy results. Etiology of the patient's abdominal pain remains unclear. Liver enzymes today are improved and the ultrasound of the abdomen appears normal. Will resume diet. If her pain improves may discharge with plans for outpatient follow-up in the bariatric clinic. Patient will require a fluoroscopy film to determine whether there is a problem with her lap band tubing.
[2017-06-17] MEDS: METOCLOPRAMIDE 5 MG/ML 2 ML VIAL IVP PRN (10:05)
[2017-06-17] MEDS: MORPHINE SULFATE 4 MG/ML SYRINGE IVP PRN (10:05)
[2017-06-17] MEDS: CALCIUM CARBONATE 500 MG CHEWABLE PO SCH (10:10)
[2017-06-17] MEDS: CHOLECALCIFEROL 400 UNIT TAB PO SCH (10:10)
[2017-06-17] MEDS: PANTOPRAZOLE 40 MG/10 ML VIAL IV SCH (10:11)
[2017-06-17] MEDS: CYANOCOBALAMIN 500 MCG TAB PO SCH (10:11)
[2017-06-17] MEDS: MULTIVITAMINS, THERA 1 EACH TAB PO SCH (10:11)
[2017-06-17] MEDS: SODIUM CHLORIDE 0.9% 1,000 ML IV SCH ×2 (10:11→13:59)
[2017-06-17] MEDS: ENOXAPARIN 40 MG/0.4 ML SYRINGE SQ SCH (10:11)
[2017-06-17] MEDS: LEVOFLOXACIN 500MG-D5W PMX 500 MG in DEXTROSE/WATER 1 100ML.BAG IVPB SCH (13:59)
--- NOTE | 2017-06-17 20:01 | DS ---
DISCHARGE SUMMARY DATE OF SERVICE: 06/17/2017. FINAL DIAGNOSES: 1. Abdominal pain, nausea, vomiting and diarrhea, fever, possible acute gastroenteritis. 2. No evidence of sepsis. Status post EGD and biopsy. 3. Elevated AST, ALT. 4. History of degenerative joint disease. 5. History of gastroesophageal reflux disease. 6. History of migraines. 7. History of hypoglycemia. 8. History of lap band surgery. 9. History of iron deficiency anemia. 10.History of nephrolithiasis. 11.History of degenerative joint disease. 12.History of hernia. 13.History of MRSA. 14.History of anxiety. HISTORY OF PRESENT ILLNESS: This 41-year-old woman with a past medical history of multiple medical was admitted with abdominal pain, nausea and diarrhea, being treated symptomatically, improved significantly. Dr. Lawrence saw the patient. EGD did not show acute abnormality. Abdomen ultrasound was also noted. Dr. Lawrence recommended the patient follow up in the outpatient setting for evaluation of the possible lab band removal or for further procedures. ultrasound of the abdomen showed normal post cholecystectomy abdomen. On exam, vitals are stable. CARDIOVASCULAR: S1, S2. ABDOMEN: Soft. NERVOUS SYSTEM: No focal deficits. DISCHARGE ADVICE: 1. Diet is cardiac diet. 2. Activities limited until followup. 3. Follow up with Dr. Wilkes in 2-3 days. 4. Follow with Dr. Lawrence as advised. MEDICATIONS: 1. Tylenol 650 q.6h p.r.n. 2. Xanax 0.5 daily. 3. Augmentin 1 p.o. b.i.d. 4. Aspirin 81 mg. 5. Calcium 600 mg p.o. daily. 6. Bentyl 10 mg t.i.d. p.r.n. 7. Iron sulfate 325 mg p.o. daily. 8. Motrin 800 mg q.8h p.r.n. 9. Reglan 10 mg q.6h p.r.n. 10.Multivitamins 1 p.o. daily. 11.Ultram 50 mg q.8 p.r.n. 12.Vitamin B2 1 tab p.o. daily. 13.Vitamin D3 1 tablet p.o. daily. Once again, the patient is being discharged in stable condition with guarded prognosis. MMODL / IJN: [id number] /
== END 2017-06-17 13:59 ==
LOC: EC 11:06 → 4MS4W 15:05
PROVIDERS: ADMIT Hospitalist; ATTEND Hospitalist
DX: R10.12 Left upper quadrant pain (principal); R11.2 Nausea with vomiting, unspecified; R19.7 Diarrhea, unspecified; R50.9 Fever, unspecified; R74.0 Nonspecific elevation of levels of transaminase and lactic acid dehydrogenase [LDH]; M19.90 Unspecified osteoarthritis, unspecified site; K21.9 Gastro-esophageal reflux disease without esophagitis; G43.909 Migraine, unspecified, not intractable, without status migrainosus; Z98.84 Bariatric surgery status; D50.9 Iron deficiency anemia, unspecified; Z87.442 Personal history of urinary calculi; Z86.14 Personal history of Methicillin resistant Staphylococcus aureus infection; F41.9 Anxiety disorder, unspecified; K29.70 Gastritis, unspecified, without bleeding; R05 Cough; R09.81 Nasal congestion; E86.0 Dehydration; N39.0 Urinary tract infection, site not specified; D58.0 Hereditary spherocytosis; M54.9 Dorsalgia, unspecified; M48.00 Spinal stenosis, site unspecified; M50.20 Other cervical disc displacement, unspecified cervical region; F40.240 Claustrophobia; Z87.891 Personal history of nicotine dependence; Z87.440 Personal history of urinary (tract) infections; Z90.49 Acquired absence of other specified parts of digestive tract; Z90.81 Acquired absence of spleen; Z91.048 Other nonmedicinal substance allergy status; Z79.899 Other long term (current) drug therapy; Z79.82 Long term (current) use of aspirin; Z80.8 Family history of malignant neoplasm of other organs or systems; Z82.5 Family history of asthma and other chronic lower respiratory diseases; Z82.49 Family history of ischemic heart disease and other diseases of the circulatory system
CPT/HCPCS: 96365 ×2; 96375 ×6; 96376 ×5; 96361 ×9; 99285; 96366; 96372; 36415; 93005; 88305; 80053 ×3; 80074; 85652; 82150 ×2; 83605; 83690 ×2; 85025 ×3; 85610; 85730; 86140; 81003; 87040; 80306; 87086; 87502; 71045; 76705; 74177; 43239; G0378 ×3; J2250; J2270 ×3; J2765 ×3; J2405 ×3; J1956 ×2; J2001; J1650 ×2; Q9967; J2704; C9113 ×3; J1170

== ENCOUNTER → 2017-06-21 | Outpatient (CLI) | payer BC ==
[2017-06-21 12:05] VITALS: BP 132/76; PULSE 91; RESP 15; TEMP 99.3; BMI 43.0
--- NOTE | 2017-06-21 13:04 | FL ---
GASTRIC BANDING ESOPHAGRAM CLINICAL HISTORY: Pain 2 oz thin barium 1min28 sec fl 15 images submitted. Gastric banding esophagram was performed. The patient ingested thin liquid barium without difficulty or delay. Gastric band is noted to be in place. There is no evidence for leak or obstruction. No prolapse is identified. IMPRESSION: Normal-appearing gastric banding device without leak or obstruction.
[2017-06-21 13:55] LABS: HCT 45.6 % (34.0-46.0); MCHC 32.8 g/dL (31.0-37.0); MCV 91.4 fL (80.0-100.0); Platelet Count 546 k/uL (150-450); RDW 12.6 % (11.5-15.5)
[2017-06-21 13:57] LABS: ALT 81 U/L (9-52); AST 98 U/L (14-36); Alkaline Phosphatase 96 U/L (38-126); Amylase 46 U/L (30-110); Anion Gap 10 mmol/L; Blood Urea Nitrogen 7 mg/dL (7-17); Carbon Dioxide 24 mmol/L (22-30); Chloride 108 mmol/L (98-107); Glucose 91 mg/dL (74-99); Potassium 4.3 mmol/L (3.5-5.1); Sodium 142 mmol/L (137-145); Total Bilirubin 0.5 mg/dL (0.2-1.3); Total Protein 6.9 g/dL (6.3-8.2)
--- NOTE | 2017-06-21 16:01 | CT ---
EXAMINATION TYPE: CT abdomen w con DATE OF EXAM: 06/21/2017 COMPARISON: June 15, 2017 HISTORY: LUQ, N/V/D. CT DLP: 1682.9 mGycm CONTRAST: CT scan of the abdomen and pelvis is performed with Oral Contrast and with IV Contrast, patient injec marco a with 100ml mL of Omnipaque 300. FINDINGS: LUNG BASES-: No visible nodule. No infiltrate. LIVER/GB: No calcified gallstones. No space occupying hepatic lesion. Biliary tree is of normal ca liber. PANCREAS: No inflammation. No distinct mass. SPLEEN: Splenectomy changes noted. ADRENALS: No nodule. No thickening. KIDNEYS/BLADDER: No hydronephrosis. 3 mm nonobstructing calculus lower pole left kidney. No distinct renal mass. Urinary bladder grossly unremarkable. BOWEL: Gastric banding device is in place. No evidence for leak or obstruction. GI contrast results i n streak artifact limiting evaluation. Normal appendix. Normal bowel caliber. No inflammation. GENITAL ORGANS: No gross abnormality. LYMPH NODES: No greater than 1cm abdominal or pelvic lymph nodes are appreciated. AORTA: No significant abnormality. OSSEOUS STRUCTURES: No significant abnormality is seen. OTHER: No significant additional abnormality is seen. IMPRESSION: 1. No acute abnormality to account for the patient's symptoms. Overall stable examination.
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
== END | disposition home or self-care (01) ==
LOC: BARWHC3 11:35
PROVIDERS: ATTEND Surgery
DX: Z48.815 Encounter for surgical aftercare following surgery on the digestive system (principal); E66.01 Morbid (severe) obesity due to excess calories; R10.12 Left upper quadrant pain; Z87.891 Personal history of nicotine dependence; Z68.43 Body mass index [BMI] 50.0-59.9, adult
CPT/HCPCS: 80053; 82150; 85027; 74220; 74160; 99211; 99213; 36415; Q9967; 99215

== ENCOUNTER 2017-06-22 15:15 | Day surgery (SDC) | payer BC ==
[~2017-06-22 15:15] MED LIST changes: +HEPARIN SODIUM,PORCINE 5,000 UNIT/ML 1 ML VIAL SQ ONE; -LACTATED RINGERS 1,000 ML IV SCH
[2017-06-22 15:57] VITALS: RESP 16
[2017-06-22] MEDS ORDERED: LACTATED RINGERS 1,000 ML IV ONE ×2 (16:23→18:39)
[2017-06-22] MEDS ORDERED: ONDANSETRON 4 MG/2 ML VIAL IVP ONE (16:43)
[2017-06-22] MEDS ORDERED: DEXAMETHASONE SOD PHOS (MDV) 100 MG/10 ML VIAL IVP ONE (16:43)
[2017-06-22] MEDS ORDERED: MIDAZOLAM 2 MG/2 ML VIAL IVP ONE (16:48)
[2017-06-22] MEDS ORDERED: SCOPOLAMINE 1.5MG/72HR PATCH TRANSDERM ONE (16:51)
--- NOTE | 2017-06-22 17:29 | P.HPADDEND ---
H&P Addendum H&P Addendum Date: 06/22/17 Patient presents today for lab band removal. No changes in history or physical since yesterday's history and physical. We'll proceed accordingly.
[2017-06-22] MEDS ORDERED: fentaNYL (PF) 50 MCG/ML 2 ML AMP ONE (17:41)
[2017-06-22] MEDS ORDERED: diphenhydrAMINE 50 MG/ML 1 ML VIAL ONE (17:41)
[2017-06-22] MEDS ORDERED: ROCURONIUM BROMIDE 10 MG/ML 10 ML VIAL IV ONE (17:41)
[2017-06-22] MEDS ORDERED: PROPOFOL 10 MG/ML 20 ML VIAL IV ONE (17:41)
[2017-06-22] MEDS ORDERED: HYDROmorphone (PF) 1 MG/ML ONE (17:41)
[2017-06-22] MEDS ORDERED: MIDAZOLAM 2 MG/2 ML VIAL ONE (17:41)
[2017-06-22] MEDS ORDERED: NEOSTIGMINE 1 MG/ML 10 ML VIAL ONE (17:41)
[2017-06-22] MEDS ORDERED: SUCCINYLCHOLINE CHLORIDE 100 MG/5 ML SYR IV ONE (17:41)
[2017-06-22] MEDS ORDERED: LIDOCAINE 1% INJ 10MG/ML (20 ML MDV) ONE (17:41)
[2017-06-22] MEDS ORDERED: GLYCOPYRROLATE 0.2 MG/ML 2 ML VIAL ONE (17:41)
[2017-06-22] MEDS ORDERED: BUPIVACAINE (PF) 0.25% 30 ML VIAL SQ ONE (18:28)
[2017-06-22] MEDS ORDERED: NALOXONE 0.4 MG/ML 1 ML VIAL IV PRN (19:01)
[2017-06-22] MEDS ORDERED: ONDANSETRON 4 MG/2 ML VIAL IVP PRN (19:01)
[2017-06-22] MEDS ORDERED: HYDROmorphone 0.5 MG/0.5 ML SYRINGE IVP PRN (19:01)
--- NOTE | 2017-06-22 19:06 | P.OP ---
Date of Procedure: 06/22/17 Procedure(s) Performed: PREOPERATIVE DIAGNOSIS: Malfunctioning LAP-BAND port /morbid obesity /Band intolerance/abdominal pain POSTOPERATIVE DIAGNOSIS: Same PROCEDURE: Laparoscopic lap band removal SURGEON: Melinda EBL: Minimal ANESTHESIA: General COMPLICATIONS: None OPERATIVE PROCEDURE: The patient was brought and placed on the operating room table in the supine position. The patient was placed under general anesthesia at that time. The patient was then placed in lithotomy. The abdomen was prepped and draped in the usual sterile fashion. The previous port incision was localized and then incised using a scalpel. The port was easily excised using electrocautery. The port was inspected. As expected there was a linear erosion present in the band tubing on the port side of the connection. Entrance into the peritoneal cavity occurred using a 5 mm optical trocar through the old tubing entrance site. Insufflation took place to 15 mmHg. A right subxiphoid 5 mm trocar was placed. This was then removed and the medium Mirna hook was used to elevate the left lobe of the liver anteriorly. An additional 5 mm trocar was placed under direct visualization in the right lateral upper quadrant. The original 5 mm trocar was switched to a 15 mm trocar. A additional 5 mm trocar was placed in the medial right upper quadrant under direct visualization. There were adhesions to the band and the buckle that were lysed using electrocautery. The band was then cut using the laparoscopic nai. The band was then removed easily in 2 portions through the 15 mm trocar site. The stomach itself was inspected and revealed no evidence of erosion or prolapse. There were no other abnormalities identified that would explain the patient's discomfort. The trochars were removed. The fascia at the 15 mm site was closed using a Rasheed-Gil[place] 0 Vicryl stitch. The subcutaneous tissues at the port site was closed using a 3-0 Vicryl suture. The skin at all 4 incision sites were closed using 4-0 Monocryl sutures. Steri-Strips and sterile dressings were then applied. DISPOSITION: Stable to recovery room
[2017-06-22] MEDS: MORPHINE SULFATE 4 MG/ML SYRINGE IV ONE ×2 (19:19→19:37)
[2017-06-22] MEDS: KETOROLAC 30 MG/ML 1 ML VIAL IVP SCH (20:30)
[2017-06-22] MEDS ORDERED: METOCLOPRAMIDE 5 MG/ML 2 ML VIAL IVP PRN (20:51)
[2017-06-22] MEDS: HYDROcodone/APAP 5-325MG 1 EACH TAB PO PRN (21:01)
[2017-06-22] MEDS: HEPARIN SODIUM,PORCINE 5,000 UNIT/ML 1 ML VIAL SQ SCH (23:16)
[2017-06-22] MEDS: LACTATED RINGERS 1,000 ML IV SCH (23:16)
[2017-06-23] MEDS: HYDROcodone/APAP 5-325MG 1 EACH TAB PO PRN ×3 (01:46→12:22)
[2017-06-23] MEDS: KETOROLAC 30 MG/ML 1 ML VIAL IVP SCH ×2 (01:52→08:25)
[2017-06-23] MEDS: LACTATED RINGERS 1,000 ML IV SCH (07:16)
[2017-06-23] MEDS: HEPARIN SODIUM,PORCINE 5,000 UNIT/ML 1 ML VIAL SQ SCH (08:25)
[2017-06-23 08:45] VITALS: BP 106/65; PULSE 75; TEMP 98.8
[2017-06-23] MEDS ORDERED: PANTOPRAZOLE 40 MG/10 ML VIAL IV SCH (09:00)
--- NOTE | 2017-06-23 11:01 | P.DS ---
Providers Expected date of discharge: 06/23/17 Attending physician: Jorge Lawrence Primary care physician: Stated None Hospital Course: 41-year-old female presented on the day of admission to electively undergo lap band removal. Patient had a malfunctioning of the LAP-BAND which was put in place for morbid obesity. Patient was symptomatic underwent a laparoscopic lap band removal on June 22. There were no postop events. Pain medication effective for pain control. Surgical sites dry. Tolerating diet no nausea no vomiting. Up ambulating in the room. Afebrile Patient stated did not need a prescription for analgesics [place] as was not having surgical discomfort Discharge summary dictated for Dr. Camacho rounding for Dr. Lawrence Impression discharge diagnoses Malfunctioning LAP-BAND port Morbid obesity BMI 43 Status post June 22 laparoscopic lap band removal for malfunctioning of the LAP-BAND Band intolerance with abdominal pain likely due to malfunctioning LAP-BAND The above impression and plan of care have been discussed and directed by signing physician. Karina Reza nurse practitioner acting as scribe for signing physician. Plan - Discharge Summary Discharge Rx Participant: No New Discharge Prescriptions: Continue Multivitamins, Thera [Multivitamin (formulary)] 1 tab PO DAILY traMADol HCL [Ultram] 50 mg PO Q8H PRN PRN Reason: Pain ALPRAZolam [Xanax] 0.25 mg PO DAILY PRN PRN Reason: Anxiety Ferrous Sulfate [Iron (65 MG Elemental)] 325 mg PO DAILY Vitamin D3 (Unknown Dose) 1 tab PO DAILY Vitamin B12 (Unsure Of Dose) 1 tab PO DAILY Ibuprofen [Motrin] 800 mg PO Q8H PRN PRN Reason: Pain Calcium Carbonate [Calcium] 600 mg PO DAILY Aspirin 81 mg PO DAILY Acetaminophen Tab [Tylenol] 650 mg PO Q6HR PRN tab PRN Reason: Mild Pain Or Fever > 100.5 Dicyclomine [Bentyl] 10 mg PO TID PRN #20 capsule PRN Reason: Pain Amoxicillin/Potassium Clav [Augmentin 875-125 Tablet] 1 each PO Q12HR #14 tab Promethazine [Phenergan] 50 mg PO Q6HR PRN PRN Reason: Nausea HYDROcodone/APAP 7.5-325MG [[place] 7.5-325] 2 tab PO Q4H PRN PRN Reason: Pain Scale 7 To 10 Discharge Medication List Multivitamins, Thera [Multivitamin (formulary)] 1 tab PO DAILY 10/08/15 [History ] ALPRAZolam [Xanax] 0.25 mg PO DAILY PRN 07/21/16 [History] traMADol HCL [Ultram] 50 mg PO Q8H PRN 07/21/16 [History] Ferrous Sulfate [Iron (65 MG Elemental)] 325 mg PO DAILY 11/03/16 [History] Vitamin B12 (Unsure Of Dose) 1 tab PO DAILY 11/05/16 [History] Vitamin D3 (Unknown Dose) 1 tab PO DAILY 11/05/16 [History] Ibuprofen [Motrin] 800 mg PO Q8H PRN 04/11/17 [History] Aspirin 81 mg PO DAILY 06/14/17 [History] Calcium Carbonate [Calcium] 600 mg PO DAILY 06/14/17 [History] Acetaminophen Tab [Tylenol] 650 mg PO Q6HR PRN tab 06/17/17 [Rx] Amoxicillin/Potassium Clav [Augmentin 875-125 Tablet] 1 each PO Q12HR #14 tab [Rx] Dicyclomine [Bentyl] 10 mg PO TID PRN #20 capsule 06/17/17 [Rx] HYDROcodone/APAP 7.5-325MG [[place] 7.5-325] 2 tab PO Q4H PRN 06/22/17 [History] Promethazine [Phenergan] 50 mg PO Q6HR PRN 06/22/17 [History] Follow up Appointment(s)/Referral(s): [facility],. [NON-STAFF] - 07/05/17 2:00 pm Activity/Diet/Wound Care/Special Instructions: No tub bath for six weeks. Shower daily. No lifting over 4 pounds for the next 6 weeks. May use ice packs to surgical site. No driving while taking narcotic for pain. Discharge Disposition: HOME SELF-CARE
== END 2017-06-23 12:30 | disposition home or self-care (01) ==
LOC: OR 15:15 → 3SUR 18:47 → OR 06-23 12:30
PROVIDERS: ATTEND Surgery
DX: K95.09 Other complications of gastric band procedure (principal); R10.9 Unspecified abdominal pain; E66.01 Morbid (severe) obesity due to excess calories; Z68.41 Body mass index [BMI] 40.0-44.9, adult; K21.9 Gastro-esophageal reflux disease without esophagitis; M19.90 Unspecified osteoarthritis, unspecified site; G43.909 Migraine, unspecified, not intractable, without status migrainosus; D50.9 Iron deficiency anemia, unspecified; D58.0 Hereditary spherocytosis; F41.9 Anxiety disorder, unspecified; Z82.49 Family history of ischemic heart disease and other diseases of the circulatory system; Z86.14 Personal history of Methicillin resistant Staphylococcus aureus infection; Z87.442 Personal history of urinary calculi; Z87.440 Personal history of urinary (tract) infections; Z79.84 Long term (current) use of oral hypoglycemic drugs; Z79.1 Long term (current) use of non-steroidal anti-inflammatories (NSAID); Z79.82 Long term (current) use of aspirin; Z79.891 Long term (current) use of opiate analgesic; Z79.899 Other long term (current) drug therapy; Z87.891 Personal history of nicotine dependence; Z91.048 Other nonmedicinal substance allergy status
CPT/HCPCS: 43774; J2250; J2270; J1200; J1644 ×2; J2710; J0690; J2405; J2001; J3010; J1885 ×2; J1170; J1100; J0330; J2704; C9113

== ENCOUNTER → 2017-06-25 | Outpatient (CLI) | payer BC ==
[2017-06-25 12:15] LABS: Basophils # (A) 0.1 k/uL (0-0.2); Basophils % (A) 0 %; Eosinophils # (A) 0.3 k/uL (0-0.7); Eosinophils % (A) 3 %; Lymphocytes # (A) 4.2 k/uL (1.0-4.8); Lymphocytes % (A) 39 %; MCH 29.4 pg (25.0-35.0); MCV 91.8 fL (80.0-100.0); Mean Platelet Volume 9.4; Monocytes # (A) 0.6 k/uL (0-1.0); Monocytes % (A) 6 %; Neutrophils # (A) 5.5 k/uL (1.3-7.7); Neutrophils % (A) 51 %; Platelet Count 469 k/uL (150-450); RBC 5.12 m/uL (3.80-5.40); RDW 12.6 % (11.5-15.5); WBC 10.8 k/uL (3.8-10.6)
[2017-06-25 12:25] LABS: ALT 25 U/L (9-52); AST 31 U/L (14-36); Albumin 3.6 g/dL (3.5-5.0); Alkaline Phosphatase 75 U/L (38-126); Anion Gap 9 mmol/L; Bilirubin, Delta 0.3 mg/dL (0.0-0.2); Bilirubin,Unconjugated 0.2 mg/dL (0.0-1.1); Blood Urea Nitrogen 9 mg/dL (7-17); Calcium 9.4 mg/dL (8.4-10.2); Carbon Dioxide 27 mmol/L (22-30); Chloride 104 mmol/L (98-107); Glucose 90 mg/dL (74-99); Potassium 3.9 mmol/L (3.5-5.1); Sodium 140 mmol/L (137-145); Total Bilirubin 0.5 mg/dL (0.2-1.3); Total Protein 6.3 g/dL (6.3-8.2)
== END | disposition home or self-care (01) ==
LOC: LABWHC1 11:38
PROVIDERS: ATTEND Family Medicine
DX: R10.12 Left upper quadrant pain (principal); R74.0 Nonspecific elevation of levels of transaminase and lactic acid dehydrogenase [LDH]
CPT/HCPCS: 36415; 80048; 80076; 85025

== ENCOUNTER → 2017-07-05 | Outpatient (CLI) | payer BC ==
--- NOTE | 2017-07-05 14:19 | P.BASOAP ---
Subjective Progress Note Date: 07/05/17 Principal diagnosis: Morbid obesity Patient returns after recent lap band removal. Her abdominal pain is improved. It is not completely resolved however. Still with some pain with eating. Nausea and vomiting are gone now. Denies fevers. Recent liver enzymes were repeated and appear normal. Tolerating diet. Objective - Vital Signs Vital signs: Intake & Output 07/04/17 07/05/17 07/05/17 18:59 06:59 18:59 Weight 127.958 kg - Exam Abdomen: Soft, nondistended, mild incisional tenderness, incisions clean and dry Assessment/Plan (1) Morbid obesity Narrative/Plan: Patient seems to be doing better now after recent band removal. Patient requesting colonoscopy for the purpose of rectal bleeding and hemorrhoids. Continue to monitor pain. We'll schedule colonoscopy through the office. Plan: Date: Initial Weight: Initial BMI: Current Weight: 127.958 kg Current BMI: Type of Surgery: Total Volume in Band: Previous Volume: Volume Removed: Volume Added: Band Size:
[2017-07-05 14:24] VITALS: BP 137/95; PULSE 81; TEMP 98.9; BMI 44.1
== END | disposition home or self-care (01) ==
LOC: BARWHC3 13:59
PROVIDERS: ATTEND Surgery
DX: E66.01 Morbid (severe) obesity due to excess calories (principal); Z68.41 Body mass index [BMI] 40.0-44.9, adult; Z98.84 Bariatric surgery status
CPT/HCPCS: 99211

== ENCOUNTER → 2017-07-21 | Outpatient (CLI) | payer BC ==
--- NOTE | 2017-07-21 14:19 | P.PN ---
Progress Note - Text Progress Note Date: 07/21/17 Patient returns for followup for chronic back pain with radiation to hips. Patient recently underwent bilateral RFA in November and December and states that pain in low back is well controlled but is having severe numbness/tingling pain in her neck and radiating to LUE. Patient continues on tramadol medications from PCP for pain with good relief. Patient denies adverse drug effects from medications. Today, pt denies new-onset weakness, bowel/bladder incontinence, or any other signs or symptoms of cauda equina syndrome. There are no signs of acute intoxication, and no indications of medication diversion or overuse. In addition to above, 13-point review of systems is also negative for chest pain , shortness of breath, changes in vision, changes in hearing, new onset weakness , abdominal pain, diarrhea, extreme fatigue, malaise, fever, skin changes, homicidal or suicidal ideation, or bowel or bladder incontinence. Vital Signs: Reviewed in EMR Gen: WDWN, AAOx3, NAD, obese HEENT: NCAT, EOMI, hearing grossly normal Pulm: resp unlabored Abd: soft, NT, ND Neck: supple, trachea midline Spurling's + LUE, decreased ROM flexion/extension of C-spine Neuro: CN II-XII grossly intact, muscle strength lower extremities PRESERVED Imaging: Reviewed in EMR Assessment: 1. morbid obesity 2. lumbar spondylosis without myelopathy 3. sacroiliitis 4. cervical radiculitis Plan: 1. Explanation: Opioid and psychological risk scores were reviewed. Diagnoses , prognoses, and multiple treatment options including but not limited to physical therapy, interventional therapies, adjuvant medical therapies, narcotic medication therapies, and surgery were discussed with the patient and all questions were answered to the patient's satisfaction. 2. Opioid agreement: no opioids prescribed today 3. Counseling: The patient was counseled extensively on BODY MASS INDEX, EXERCISE. Specifically, the patient was instructed regarding the importance of obesity, and exercise in the context of both chronic pain and overall health. 4. Procedures: ADY series C7-T1 5. Consultations: None 6. Investigations: None 7. Medications: none prescribed 8. Disposition: f/u for procedure as scheduled PQRS measures: 1-Patient's medications are documented in the chart. 2-Tobacco use is negative, counseling NOT given 3-Patient has had a pneumococcal vaccine. 4-Advanced care planning discussed, patient unable to give. 5-Opioid contract signed with the patient. 6-Pain positive, follow-up visit or procedure scheduled 7-Patient's blood pressure measured and documented, and patient will follow up with the primary care due to hypertension. 8-Patient's weight was measured, and body mass index ABOVE the normal limits, and counseling was done. Patient instructed to follow up with PCP. 9-Patient WAS NOT identified as an unhealthy alcohol user.
[2017-07-21 14:33] VITALS: BP 135/86; PULSE 98; RESP 16
== END | disposition home or self-care (01) ==
LOC: PNWHC3 14:09
PROVIDERS: ATTEND Anesthesiology
DX: M47.816 Spondylosis without myelopathy or radiculopathy, lumbar region (principal); M54.12 Radiculopathy, cervical region; M46.1 Sacroiliitis, not elsewhere classified; E66.01 Morbid (severe) obesity due to excess calories; Z79.891 Long term (current) use of opiate analgesic
CPT/HCPCS: 99211

== ENCOUNTER → 2017-07-22 | Outpatient (CLI) | payer BC ==
--- NOTE | 2017-07-22 13:37 | FL ---
EXAMINATION TYPE: FL UGI air w small bowel DATE OF EXAM: 07/22/2017 COMPARISON: 06/21/2017 CT abdomen and 06/15/2017 CT abdomen and pelvis. Patient has had a reversal of ga stric lap band procedure and cholecystectomy clips reside within the right upper quadrant HISTORY: Nausea, vomiting, constipation and diarrhea with generalized abdominal pain most pronounced in the left upper quadrant and right lower quadrant. TECHNIQUE: A double contrast UGI study is performed with small bowel follow through. Pt given 12oz E Z Paque,4oz EZHD,1pkg EZGas. 6.09min fluoro time with 60 images saved. FINDINGS: Case Manager image of the abdomen shows surgical clips from reversal of a gastric lap band and ch olecystectomy clips within the right upper quadrant. The esophagus shows normal motility and emptying into the stomach. No stricture is seen. A small hiat al hernia is noted with intraesophageal reflux to the level of mid thoracic esophagus (moderate in de gree). No gastroesophageal reflux is seen. The stomach shows normal distensibility and peristalsis. Mild gastric rugal fold thickening most comm only corresponds to mild gastritis. No evidence of any mass or ulcer disease. The duodenal bulb and sweep are unremarkable. The small bowel study shows normal transit to the colon in less than 4 hours. There is normal mucosa l fold pattern throughout the small bowel. There is no evidence of any stricture or filling defect n oted. The terminal ileum is unremarkable. IMPRESSION: 1. Small hiatal hernia with moderate intraesophageal reflux to the level of the midthoracic esophagus . 2. Findings most compatible with mild gastritis. 3. Small bowel fold pattern is unremarkable with no stricture identified or thickening of the termina l ileum. Small bowel to large bowel transit time is within normal limits.
== END | disposition home or self-care (01) ==
LOC: RADFLMAIN 08:00
PROVIDERS: ATTEND Surgery
DX: K44.9 Diaphragmatic hernia without obstruction or gangrene (principal); K21.9 Gastro-esophageal reflux disease without esophagitis
CPT/HCPCS: 74249

== ENCOUNTER 2017-08-23 06:29 | Day surgery (SDC) | payer BC ==
[2017-08-17 11:56] VITALS: BMI 42.3
[2017-08-23] MEDS ORDERED: LACTATED RINGERS 1,000 ML IV SCH (07:30)
[2017-08-23 07:36] VITALS: RESP 16; TEMP 98.4
[2017-08-23] MEDS ORDERED: LIDOCAINE 1% 20 ML VIAL (10MG/ML) FOR IV START INTRADERMA ONE (07:36)
[2017-08-23 07:41] LABS: Glucose,Whole Blood 89 mg/dL (75-99)
--- NOTE | 2017-08-23 08:01 | P.PCN ---
Date of Procedure: 08/23/17 Surgeon: Pato Gillespie Pathology: none sent Condition: stable Disposition: PACU Description of Procedure: PREOPERATIVE DIAGNOSIS: Cervical radiculopathy. POSTOPERATIVE DIAGNOSIS: Cervical radiculopathy. PROCEDURE 1. Cervical epidural steroid injection under fluoroscopic guidance, C7-T1 level. 2. Cervical epidurogram. ANESTHESIA: Local anesthesia with 1% lidocaine and IV sedation with versed/ fentanyl. EBL: Minimal PROCEDURE INDICATION: The patient with neck pain and radiculitis unresponsive to conservative treatment consents for procedure, ADY #1 today. No use of blood thinners. PROCEDURE DESCRIPTION / TECHNIQUE: The patient was seen and identified in the preoperative area. Risks, benefits, complications, and alternatives were discussed with the patient (including but not limited to incomplete pain relief, bleeding, infection, nerve damage, and allergies to medications), the patient agreed to proceed with the procedure and signed the consent after all questions were answered. Patient was taken to the OR and time out was completed to verify proper patient , position, laterality of pain, and allergies. Pt was placed in the prone position. A pillow was placed under the patients chest to increase the cervical interlaminar space. The cervical area was prepped and draped in the usual sterile fashion. Critical pause was taken. Vital signs were closely monitored during the procedure. Conscious sedation was used during the procedure to decrease patients anxiety. Using anterior-posterior fluoroscopy, the C7-T1 interlaminar space was identified and the skin over this site was marked and then infiltrated with 1% lidocaine subcutaneously in a paramedian fashion. Subsequently, a 20-gauge 3-1/2 -inch Tuohy epidural needle was inserted and advanced toward the epidural space by means of the loss of resistance technique and guided by AP and lateral fluoroscopy. After negative aspiration for blood or CSF and in the absence of paresthesias, the correct needle position in the epidural space was verified with the injection of 1 mL of the water soluble contrast dye Isovue 200 and observing an excellent epidurogram with the epidural spread of the dye, after negative aspiration for blood and CSF and in the absence of paresthesias. Again after negative aspiration, a 3 ml mixture containing 20 mg of Decadron and 1 ml of preservative free Normal Saline solution was injected and a washout of epidurogram was seen. Needle was withdrawn intact, skin was cleansed, and bandages were applied. COMPLICATIONS: None COMMENTS: DISPOSITION / PLANS: The patient was placed in a supine position and transferred to the recovery area in a stable condition for observation. There was no evidence of upper extremity motor or sensory deficit after the procedure. Patient was discharged from the recovery room after meeting discharge criteria. Home discharge instructions were given to the patient by the staff. The patient was reexamined prior to discharge and there were no issues. The patient will schedule a repeat procedure (ADY) in 2-4 weeks.
[2017-08-23] MEDS ORDERED: IV FLUID CONTINUATION 1,000 ML IV ONE (08:06)
[2017-08-23 08:22] VITALS: BP 125/89; PULSE 79
--- NOTE | 2017-08-23 08:22 | FL ---
Fluoroscopy HISTORY: Pain 24 seconds fluoroscopy time supplied to the referring clinician. 2 intraoperative C-arm images docum ent the procedure. See dictated report from anesthesia.
== END 2017-08-23 08:38 | disposition home or self-care (01) ==
LOC: ORPAIN 06:29
PROVIDERS: ATTEND Anesthesiology
DX: M54.12 Radiculopathy, cervical region (principal); I10 Essential (primary) hypertension; F41.9 Anxiety disorder, unspecified; K21.9 Gastro-esophageal reflux disease without esophagitis; E16.2 Hypoglycemia, unspecified; Z98.84 Bariatric surgery status; Z91.048 Other nonmedicinal substance allergy status; Z79.899 Other long term (current) drug therapy; Z79.891 Long term (current) use of opiate analgesic
CPT/HCPCS: 62321; J1100; Q9966

== ENCOUNTER → 2017-09-08 | Outpatient (CLI) | payer BC ==
--- NOTE | 2017-09-08 13:55 | MM ---
Reason for exam: follow-up at short interval from prior study. Last mammogram was performed 7 months ago. History: Family history of breast cancer in maternal aunt and breast cancer in 3 paternal cousins. Benign US biopsy breast VAD LT of the left breast, September 15, 2015. Took hormonal contraceptives for 10 years. Physical Findings: Nurse did not find any significant physical abnormalities on exam. MG 3D Diag Mammo W/Cad RT CC and MLO view(s) were taken of the right breast. Prior study comparison: February 10, 2017, bilateral MG 3d diag mammo w/cad CATHERINE. August 15, 2015, bilateral MG screening mammo w CAD. There are scattered fibroglandular densities. No suspicious abnormality. The previously seen lateral asymmetry is no longer present and may have represented a lymph node or resolved cyst. These results were verbally communicated with the patient and result sheet given to the patient on 09/08/17. ASSESSMENT: Negative, BI-RAD 1 RECOMMENDATION: Routine screening mammogram of both breasts in 6 months. Back on schedule for February 2018.
== END | disposition home or self-care (01) ==
LOC: RADMAMWWP 12:44
PROVIDERS: ATTEND Obstetrics & Gynecology
DX: R92.8 Other abnormal and inconclusive findings on diagnostic imaging of breast (principal)
CPT/HCPCS: 77061; 77065

== ENCOUNTER 2017-09-13 07:24 | Day surgery (SDC) | payer BC ==
[2017-09-13] MEDS ORDERED: LIDOCAINE 1% 20 ML VIAL (10MG/ML) FOR IV START INTRADERMA ONE (08:10)
[2017-09-13 08:20] VITALS: RESP 16; TEMP 98.5
[2017-09-13] MEDS ORDERED: LACTATED RINGERS 1,000 ML IV ONE (08:27)
[2017-09-13] MEDS ORDERED: LACTATED RINGERS 1,000 ML IV SCH (08:45)
[2017-09-13] MEDS ORDERED: IV FLUID CONTINUATION 1,000 ML IV ONE (09:18)
--- NOTE | 2017-09-13 09:22 | FL ---
EXAMINATION TYPE: FL guided pain mgmt statistic DATE OF EXAM: 09/13/2017 HISTORY: Flouroscopy time 6 seconds of fluoroscopy provided. IMPRESSION: 1. Fluoroscopy time.
[2017-09-13] MEDS ORDERED: ONDANSETRON 4 MG/2 ML VIAL IVP STA (09:24)
[2017-09-13] MEDS ORDERED: ONDANSETRON 4 MG/2 ML VIAL IVP ONE (09:26)
--- NOTE | 2017-09-13 09:43 | P.PCN ---
Date of Procedure: 09/13/17 Surgeon: Pato Gillespie Pathology: none sent Condition: stable Disposition: PACU Description of Procedure: PREOPERATIVE DIAGNOSIS: Cervical radiculopathy. POSTOPERATIVE DIAGNOSIS: Cervical radiculopathy. PROCEDURE 1. Cervical epidural steroid injection under fluoroscopic guidance, C7-T1 level. 2. Cervical epidurogram. ANESTHESIA: Local anesthesia with 1% lidocaine and IV sedation with versed/ fentanyl. EBL: Minimal PROCEDURE INDICATION: The patient with neck pain and radiculitis unresponsive to conservative treatment consents for procedure, AYD #2 today after only 1 day 's relief from last procedure. No use of blood thinners. PROCEDURE DESCRIPTION / TECHNIQUE: The patient was seen and identified in the preoperative area. Risks, benefits, complications, and alternatives were discussed with the patient (including but not limited to incomplete pain relief, bleeding, infection, nerve damage, and allergies to medications), the patient agreed to proceed with the procedure and signed the consent after all questions were answered. Patient was taken to the OR and time out was completed to verify proper patient , position, laterality of pain, and allergies. Pt was placed in the prone position. A pillow was placed under the patients chest to increase the cervical interlaminar space. The cervical area was prepped and draped in the usual sterile fashion. Critical pause was taken. Vital signs were closely monitored during the procedure. Conscious sedation was used during the procedure to decrease patients anxiety. Using anterior-posterior fluoroscopy, the C7-T1 interlaminar space was identified and the skin over this site was marked and then infiltrated with 1% lidocaine subcutaneously in a paramedian fashion. Subsequently, a 20-gauge 3-1/2 -inch Tuohy epidural needle was inserted and advanced toward the epidural space by means of the loss of resistance technique and guided by AP and lateral fluoroscopy. After negative aspiration for blood or CSF and in the absence of paresthesias, the correct needle position in the epidural space was verified with the injection of 1 mL of the water soluble contrast dye Isovue 200 and observing an excellent epidurogram with the epidural spread of the dye, after negative aspiration for blood and CSF and in the absence of paresthesias. Again after negative aspiration, a 3 ml mixture containing 20 mg of Decadron and 1 ml of preservative free Normal Saline solution was injected and a washout of epidurogram was seen. Needle was withdrawn intact, skin was cleansed, and bandages were applied. COMPLICATIONS: None COMMENTS: DISPOSITION / PLANS: The patient was placed in a supine position and transferred to the recovery area in a stable condition for observation. There was no evidence of upper extremity motor or sensory deficit after the procedure. Patient was discharged from the recovery room after meeting discharge criteria. Home discharge instructions were given to the patient by the staff. The patient was reexamined prior to discharge and there were no issues. The patient will schedule a follow up as needed; she is returning to see her neurosurgeon.
[2017-09-13 09:55] VITALS: BP 128/86; PULSE 69
== END 2017-09-13 10:04 | disposition home or self-care (01) ==
LOC: ORPAIN 07:24
PROVIDERS: ATTEND Anesthesiology
DX: M54.12 Radiculopathy, cervical region (principal); Z91.048 Other nonmedicinal substance allergy status
CPT/HCPCS: 62321; J2250; J1100; J2405; J3010; Q9966

== ENCOUNTER 2017-10-21 11:17 | Day surgery (SDC) | payer BC ==
[2017-10-20 13:44] VITALS: BMI 41.0
[~2017-10-21 11:17] MED LIST changes: -HEPARIN SODIUM,PORCINE 5,000 UNIT/ML 1 ML VIAL SQ ONE; +LACTATED RINGERS 1,000 ML IV SCH
[2017-10-21 12:10] VITALS: RESP 16; TEMP 99
[2017-10-21] MEDS ORDERED: LIDOCAINE 1% 20 ML VIAL (10MG/ML) FOR IV START INTRADERMA ONE (12:30)
[2017-10-21] MEDS ORDERED: SCOPOLAMINE 1.5MG/72HR PATCH TRANSDERM ONE (12:31)
[2017-10-21] MEDS ORDERED: DEXAMETHASONE SOD PHOSPHATE 10 MG/ML 1 ML VIAL IV ONE (12:31)
[2017-10-21] MEDS ORDERED: ONDANSETRON 4 MG/2 ML VIAL IVP ONE (12:31)
[2017-10-21] MEDS ORDERED: METOCLOPRAMIDE 5 MG/ML 2 ML VIAL IVP STA (12:33)
[2017-10-21] MEDS ORDERED: PROPOFOL 10 MG/ML 20 ML VIAL IV ONE (12:41)
[2017-10-21] MEDS ORDERED: MIDAZOLAM 2 MG/2 ML VIAL ONE (12:41)
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
--- NOTE | 2017-10-21 13:07 | P.PCN ---
Date of Procedure: 10/21/17 Procedure(s) Performed: PREOPERATIVE DIAGNOSIS: Rectal bleeding, abdominal pain POSTOPERATIVE DIAGNOSIS: Poor prep, hemorrhoids PROCEDURE: Colonoscopy ANESTHESIA: MAC SURGEON: Jorge Lawrence M.D. SPECIMENS: None ENDOSCOPIC PROCEDURE: The patient was placed on the endoscopy table in the left decubitus position. The Olympus colonoscope was inserted into the anus and passed under direct visualization to the base of the cecum. The appendiceal orifice was visualized. From that point the scope was slowly withdrawn inspecting all surfaces carefully. There were no neoplastic inflammatory or polypoid lesions throughout the cecum, ascending, transverse, descending, sigmoid and rectum. There was visible diverticulosis noted. The patient's prep was somewhat suboptimal with some retained solid and liquid stool seen scattered throughout.. Digital rectal examination revealed small internal and external hemorrhoids. The patient was taken to the recovery room in stable condition per anesthesia guidelines. RECOMMENDATIONS: Bleeding likely on the basis of hemorrhoids. Follow-up colonoscopy 10 years.
[2017-10-21 13:27] VITALS: BP 127/72; PULSE 78
== END 2017-10-21 13:40 | disposition home or self-care (01) ==
LOC: ORWHC2ENDO 11:17
PROVIDERS: ATTEND Surgery
DX: K64.8 Other hemorrhoids (principal); K64.4 Residual hemorrhoidal skin tags; K57.30 Diverticulosis of large intestine without perforation or abscess without bleeding; K21.9 Gastro-esophageal reflux disease without esophagitis; M19.90 Unspecified osteoarthritis, unspecified site; G43.909 Migraine, unspecified, not intractable, without status migrainosus; D58.0 Hereditary spherocytosis; M48.00 Spinal stenosis, site unspecified; F41.9 Anxiety disorder, unspecified; Z98.84 Bariatric surgery status; Z79.899 Other long term (current) drug therapy; Z91.048 Other nonmedicinal substance allergy status; Z86.14 Personal history of Methicillin resistant Staphylococcus aureus infection; Z87.891 Personal history of nicotine dependence; Z87.442 Personal history of urinary calculi
CPT/HCPCS: 45378; J2250; J1100; J2765; J2405; J2704

== ENCOUNTER 2018-07-07 09:27 | Emergency (ER) | payer BC, OTHER ==
[2018-07-07 09:32] VITALS: RESP 18
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
[2018-07-07] MEDS: SODIUM CHLORIDE 0.9% 1,000 ML IV STA (10:34)
[2018-07-07] MEDS: METOCLOPRAMIDE 5 MG/ML 2 ML VIAL IVP STA (10:35)
[2018-07-07] MEDS: MECLIZINE 12.5 MG TAB PO STA (10:35)
--- NOTE | 2018-07-07 11:23 | CT ---
EXAMINATION TYPE: CT brain wo con DATE OF EXAM: 07/07/2018 COMPARISON: HISTORY: Ringing in ears and dizziness CT DLP: 1031.4 mGycm. Automated Exposure Control for Dose Reduction was Utilized. TECHNIQUE: CT scan of the head is performed without contrast. FINDINGS: There is no acute intracranial hemorrhage, mass effect, or midline shift identified. The ventricles and sulci are within normal limits in size. The globes are intact and the visualized sin uses are clear. IMPRESSION: No acute intracranial hemorrhage, mass effect, or midline shift is seen. Recommend follo w-up MRI.
[2018-07-07 11:30] LABS: Basophils # (A) 0.1 k/uL (0-0.2); Basophils % (A) 1 %; Eosinophils # (A) 0.2 k/uL (0-0.7); Eosinophils % (A) 2 %; HCT 45.1 % (34.0-46.0); HGB 15.7 gm/dL (11.4-16.0); Lymphocytes # (A) 3.9 k/uL (1.0-4.8); Lymphocytes % (A) 35 %; MCH 30.9 pg (25.0-35.0); MCHC 34.9 g/dL (31.0-37.0); MCV 88.6 fL (80.0-100.0); Mean Platelet Volume 9.1; Monocytes # (A) 0.6 k/uL (0-1.0); Monocytes % (A) 6 %; Neutrophils % (A) 54 %; Platelet Count 395 k/uL (150-450); RBC 5.09 m/uL (3.80-5.40); RDW 13.1 % (11.5-15.5)
[2018-07-07 11:39] LABS: INR 0.9 (<1.2); Partial Thromboplastin Time 25.5 sec (22.0-30.0); Prothrombin Time 10.1 sec (9.0-12.0)
[2018-07-07 11:53] LABS: ALT 16 U/L (9-52); AST 21 U/L (14-36); Albumin 3.7 g/dL (3.5-5.0); Alkaline Phosphatase 61 U/L (38-126); Anion Gap 7 mmol/L; Blood Urea Nitrogen 12 mg/dL (7-17); Calcium 9.4 mg/dL (8.4-10.2); Carbon Dioxide 23 mmol/L (22-30); Chloride 111 mmol/L (98-107); Glucose 83 mg/dL (74-99); Potassium 4.5 mmol/L (3.5-5.1); Sodium 141 mmol/L (137-145); Total Bilirubin 0.6 mg/dL (0.2-1.3); Total Protein 6.6 g/dL (6.3-8.2)
[2018-07-07 12:58] VITALS: BP 136/82; PULSE 94; TEMP 98
== END 2018-07-07 13:04 | disposition home or self-care (01) ==
LOC: EC 09:27
DX: R42 Dizziness and giddiness (principal); R51 Headache; H53.8 Other visual disturbances; K21.9 Gastro-esophageal reflux disease without esophagitis; Z86.14 Personal history of Methicillin resistant Staphylococcus aureus infection; Z87.891 Personal history of nicotine dependence; Z79.899 Other long term (current) drug therapy; Z91.048 Other nonmedicinal substance allergy status; Z98.84 Bariatric surgery status
CPT/HCPCS: 36415; 93005; 80053; 85025; 85610; 85730; 70450; 99284; 96374; 96361 ×2; J2765

== ENCOUNTER → 2018-07-11 | Outpatient (CLI) | payer OTHER ==
--- NOTE | 2018-07-12 06:09 | MR ---
EXAMINATION TYPE: MR brain and iac wo/w con DATE OF EXAM: 07/11/2018 COMPARISON: Prior MRI brain March 12, 2016. Most recent CT brain July 07, 2018. HISTORY: Tinnitus, headaches, dizziness, double vision TECHNIQUE: Multiplanar, multisequence images of the brain and brainstem including internal auditory canals are a ll performed without and with IV contrast, utilizing 12.5 mL intravenous Gadavist . FINDINGS: Diffusion weighted images demonstrate no evidence of a recent infarct or other diffusion ab normality. There is no extra-axial fluid collection or significant white matter signal abnormality. The ventricular system and cisternal spaces are normal in size and appearance. The brain volume is age appropriate. Midline structures demonstrate normal morphology. The craniocervical junction appears within normal limits. Post contrast images demonstrate no abnormal enhancement. The dural venous sinuses appear pa tent. The visualized sinuses are clear and the globes are intact. Dedicated IAC imaging shows new increased fluid signal bilateral mastoid air cells, right greater suleman n left. Vestibulocochlear complexes are symmetric and felt within normal limits. No suspicious enhanc ing cerebellopontine angle mass is identified bilaterally IMPRESSION: Possible right greater than left acute mastoiditis, correlate clinically.
== END ==
LOC: RADMRIMAIN 11:13
PROVIDERS: ATTEND Nurse Practitioner Family
DX: H93.13 Tinnitus, bilateral (principal); H53.8 Other visual disturbances; R51 Headache; R42 Dizziness and giddiness
CPT/HCPCS: 70553; A9585

== ENCOUNTER 2018-07-28 09:19 | Emergency (ER) | payer OTHER ==
[2018-07-28] MEDS ORDERED: SODIUM CHLORIDE 0.9% 500 ML 500 ML IV STA (10:07)
[2018-07-28] MEDS ORDERED: ONDANSETRON 4 MG/2 ML VIAL IVP STA (10:07)
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
[2018-07-28 11:18] LABS: Appearance,Urine Clear (Clear); Bilirubin,Urine Negative (Negative); Blood,Urine Negative (Negative); Color,Urine Yellow; Glucose,Urine (UA) Negative (Negative); Ketones,Urine Negative (Negative); Leukocyte Esterase,Urine Negative (Negative); Nitrite,Urine Negative (Negative); Protein,Urine Negative (Negative); Specific Gravity,Urine 1.016 (1.001-1.035); Urobilinogen,Urine <2.0 mg/dL (<2.0)
[2018-07-28] MEDS ORDERED: METOCLOPRAMIDE 5 MG/ML 2 ML VIAL IVP STA (11:20)
[2018-07-28] MEDS ORDERED: diphenhydrAMINE 50 MG/ML 1 ML VIAL IVP STA (11:20)
[2018-07-28] MEDS ORDERED: KETOROLAC 30 MG/ML 1 ML VIAL IVP STA (11:24)
[2018-07-28 11:28] LABS: ALT 23 U/L (9-52); AST 23 U/L (14-36); Albumin 4.4 g/dL (3.5-5.0); Alkaline Phosphatase 64 U/L (38-126); Amylase 46 U/L (30-110); Anion Gap 9 mmol/L; Blood Urea Nitrogen 17 mg/dL (7-17); Calcium 9.8 mg/dL (8.4-10.2); Carbon Dioxide 19 mmol/L (22-30); Chloride 112 mmol/L (98-107); Glucose 89 mg/dL (74-99); Lipase 77 U/L (23-300); Potassium 4.6 mmol/L (3.5-5.1); Sodium 140 mmol/L (137-145); Total Bilirubin 0.8 mg/dL (0.2-1.3); Total Protein 7.6 g/dL (6.3-8.2)
[2018-07-28 11:56] LABS: Basophils # (A) 0.1 k/uL (0-0.2); Basophils % (A) 1 %; Eosinophils # (A) 0.3 k/uL (0-0.7); Eosinophils % (A) 3 %; HCT 50.3 % (34.0-46.0); HGB 16.9 gm/dL (11.4-16.0); Lymphocytes # (A) 3.4 k/uL (1.0-4.8); Lymphocytes % (A) 35 %; MCH 30.6 pg (25.0-35.0); MCHC 33.6 g/dL (31.0-37.0); MCV 90.9 fL (80.0-100.0); Mean Platelet Volume 8.9; Monocytes # (A) 0.6 k/uL (0-1.0); Monocytes % (A) 6 %; Neutrophils # (A) 5.1 k/uL (1.3-7.7); Neutrophils % (A) 53 %; Platelet Count 394 k/uL (150-450); RBC 5.53 m/uL (3.80-5.40); RDW 13.7 % (11.5-15.5); WBC 9.5 k/uL (3.8-10.6)
[2018-07-28 13:28] VITALS: BP 126/77; PULSE 87; RESP 14; TEMP 98.7
== END 2018-07-28 13:31 | disposition home or self-care (01) ==
LOC: EC 09:19
DX: R11.0 Nausea (principal); R51 Headache; Z87.891 Personal history of nicotine dependence; Z91.048 Other nonmedicinal substance allergy status; Z79.899 Other long term (current) drug therapy; Z86.14 Personal history of Methicillin resistant Staphylococcus aureus infection
CPT/HCPCS: 36415; 80053; 82150; 83690; 85025; 81003; 81025; 87502; 99284; 96374; 96375 ×3; 96361 ×2; J1200; J2765; J2405; J1885

== ENCOUNTER 2019-01-15 13:57 | Emergency (ER) | payer OTHER ==
[2019-01-15 14:08] VITALS: TEMP 98.3
[2019-01-15] MEDS ORDERED: ONDANSETRON ODT 8 MG TAB.RAPDIS PO STA (14:37)
[2019-01-15] MEDS ORDERED: KETOROLAC 30 MG/ML 1 ML VIAL IVP STA (14:37)
[2019-01-15] MEDS ORDERED: SODIUM CHLORIDE 0.9% 1,000 ML IV STA ×2 (14:37)
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
[2019-01-15] MEDS ORDERED: ONDANSETRON 4 MG/2 ML VIAL IVP STA (14:46)
[2019-01-15 14:55] LABS: Basophils # (A) 0.1 k/uL (0-0.2); Basophils % (A) 1 %; Eosinophils # (A) 0.5 k/uL (0-0.7); Eosinophils % (A) 4 %; HGB 15.8 gm/dL (11.4-16.0); Lymphocytes # (A) 4.7 k/uL (1.0-4.8); Lymphocytes % (A) 41 %; MCH 30.3 pg (25.0-35.0); MCHC 35.1 g/dL (31.0-37.0); MCV 86.5 fL (80.0-100.0); Mean Platelet Volume 8.4; Monocytes # (A) 0.7 k/uL (0-1.0); Monocytes % (A) 6 %; Neutrophils # (A) 5.3 k/uL (1.3-7.7); Neutrophils % (A) 46 %; Platelet Count 454 k/uL (150-450); RDW 13.1 % (11.5-15.5); WBC 11.5 k/uL (3.8-10.6)
[2019-01-15 14:56] LABS: Appearance,Urine Cloudy (Clear); Bacteria,Urine Rare /hpf; Bilirubin,Urine Negative (Negative); Blood,Urine Negative (Negative); Color,Urine Yellow; Glucose,Urine (UA) Negative (Negative); Ketones,Urine Negative (Negative); Leukocyte Esterase,Urine Negative (Negative); Mucus,Urine Moderate /hpf; Nitrite,Urine Negative (Negative); PH, Urine 6.5 (5.0-8.0); Protein,Urine Trace (Negative); RBC,Urine 4 /hpf (0-5); Specific Gravity,Urine 1.026 (1.001-1.035); Squamous Epithelial Cell,Urine 4 /hpf (0-4); WBC,Urine 4 /hpf (0-5)
[2019-01-15 15:01] LABS: INR 0.9 (<1.2); Partial Thromboplastin Time 25.7 sec (22.0-30.0); Prothrombin Time 9.6 sec (9.0-12.0)
[2019-01-15 15:07] LABS: ALT 10 U/L (9-52); AST 26 U/L (14-36); African American GFR (CKD) >90 (>60 ml/min/1.73 sqM); Albumin 4.1 g/dL (3.5-5.0); Alkaline Phosphatase 71 U/L (38-126); Amylase 54 U/L (30-110); Anion Gap 10 mmol/L; Blood Urea Nitrogen 16 mg/dL (7-17); Calcium 9.5 mg/dL (8.4-10.2); Carbon Dioxide 16 mmol/L (22-30); Chloride 116 mmol/L (98-107); Glucose 82 mg/dL (74-99); Potassium 4.4 mmol/L (3.5-5.1); Sodium 142 mmol/L (137-145); Total Bilirubin 0.5 mg/dL (0.2-1.3); Total Protein 7.2 g/dL (6.3-8.2)
--- NOTE | 2019-01-15 15:20 | XR ---
EXAMINATION TYPE: XR KUB DATE OF EXAM: 01/15/2019 COMPARISON: NONE HISTORY: Pain TECHNIQUE: One view abdominal series FINDINGS: The osseous structures are intact. The bowel gas pattern is nonspecific. Lung bases are clear. Surg ical clips noted in the upper abdomen. Calcifications the pelvis likely vascular. Arthritic change of the hips. IMPRESSION: 1. Nonspecific abdomen.
--- NOTE | 2019-01-15 15:59 | CT ---
EXAMINATION TYPE: CT abdomen pelvis w con DATE OF EXAM: 01/15/2019 COMPARISON: 06/21/2017 HISTORY: RLQ pain with nausea, CT DLP: 2412.3 mGycm CONTRAST: CT scan of the abdomen and pelvis is performed without Oral Contrast and with IV Contrast, patient in jected with 100 mL of Isovue 300. FINDINGS: LUNG BASES-: No visible nodule. No infiltrate. LIVER/GB: Cholecystectomy clips are in place. No space occupying hepatic lesion. Biliary tree is o f normal caliber. PANCREAS: No inflammation. No distinct mass. SPLEEN: No splenic enlargement. No lesion seen. ADRENALS: No nodule. No thickening. KIDNEYS/BLADDER: No hydronephrosis. 4 mm nonobstructing calculus lower pole left kidney. No distinct renal mass. Urinary bladder grossly unremarkable. BOWEL: Normal appendix. Normal bowel caliber. No inflammation. GENITAL ORGANS: Hysterectomy changes noted. No adnexal masses. LYMPH NODES: No greater than 1cm abdominal or pelvic lymph nodes are appreciated. AORTA: No significant abnormality. OSSEOUS STRUCTURES: No significant abnormality is seen. OTHER: No significant additional abnormality is seen. IMPRESSION: 1. No acute abnormality to account for the patient's symptoms. Nonobstructing calculus left kidney.
[2019-01-15] MEDS ORDERED: MORPHINE SULFATE 2 MG/ML SYRINGE IVP STA (16:30)
[2019-01-15] MEDS ORDERED: METOCLOPRAMIDE 5 MG/ML 2 ML VIAL IVP STA (16:30)
[2019-01-15 16:39] VITALS: BP 140/92; PULSE 69; RESP 17
== END 2019-01-15 17:00 | disposition other institution (70) ==
LOC: EC 13:57
DX: R10.31 Right lower quadrant pain (principal); R11.0 Nausea; H53.149 Visual discomfort, unspecified; D72.829 Elevated white blood cell count, unspecified; Z90.81 Acquired absence of spleen; Z86.79 Personal history of other diseases of the circulatory system; Z87.891 Personal history of nicotine dependence; Z91.048 Other nonmedicinal substance allergy status; Z98.84 Bariatric surgery status; Z90.49 Acquired absence of other specified parts of digestive tract; Z90.710 Acquired absence of both cervix and uterus; Z86.14 Personal history of Methicillin resistant Staphylococcus aureus infection
CPT/HCPCS: 36415; 80053; 82150; 83690; 85025; 85610; 85730; 81001; 74018; 74177; 99285; 96374; 96375 ×3; 96361 ×2; J2765; J2405; J1885; J2270; Q9967

== ENCOUNTER → 2019-06-01 | Outpatient (CLI) | payer OTHER ==
[2019-06-01 14:07] LABS: Basophils # (A) 0.2 k/uL (0-0.2); Basophils % (A) 2 %; Eosinophils # (A) 0.2 k/uL (0-0.7); Eosinophils % (A) 2 %; HCT 49.3 % (34.0-46.0); HGB 16.7 gm/dL (11.4-16.0); Lymphocytes # (A) 4.6 k/uL (1.0-4.8); Lymphocytes % (A) 44 %; MCH 30.9 pg (25.0-35.0); MCHC 33.8 g/dL (31.0-37.0); MCV 91.4 fL (80.0-100.0); Mean Platelet Volume 9.8; Monocytes # (A) 0.5 k/uL (0-1.0); Monocytes % (A) 4 %; Neutrophils # (A) 4.9 k/uL (1.3-7.7); Neutrophils % (A) 46 %; Platelet Count 448 k/uL (150-450); WBC 10.6 k/uL (3.8-10.6)
[2019-06-01 14:22] LABS: INR 0.9 (<1.2); Partial Thromboplastin Time 25.5 sec (22.0-30.0); Prothrombin Time 9.6 sec (9.0-12.0)
[2019-06-01 14:32] LABS: Appearance,Urine Clear (Clear); Bilirubin,Urine Negative (Negative); Blood,Urine Negative (Negative); Color,Urine Light Yellow; Glucose,Urine (UA) Negative (Negative); Ketones,Urine Negative (Negative); Leukocyte Esterase,Urine Negative (Negative); Nitrite,Urine Negative (Negative); Protein,Urine Negative (Negative); Specific Gravity,Urine 1.009 (1.001-1.035); Urobilinogen,Urine <2.0 mg/dL (<2.0)
[2019-06-01 21:02] LABS: ALT <8 U/L (8-44); AST 16 U/L (13-35); African American GFR (CKD) 130.3 (60.0-200.0); Albumin/Globulin Ratio 2.15 (1.60-3.17); Alkaline Phosphatase 64 U/L (41-126); Calcium 9.4 mg/dL (8.7-10.3); Carbon Dioxide 20.5 mmol/L (21.6-31.8); Chloride 113 mmol/L (96-109); Chol/HDL Ratio 6.42; Cholesterol 167 mg/dL (0-200); Glucose 89 mg/dL (70-110); LDL Cholesterol,Calculated 106.6 mg/dL (0.0-131.0); Non-African American GFR(CKD) 112.4 (60.0-200.0); Potassium 4.1 mmol/L (3.5-5.5); Sodium 141 mmol/L (135-145); Total Bilirubin 0.5 mg/dL (0.2-1.2); Total Protein 6.3 g/dL (6.2-8.2)
== END | disposition home or self-care (01) ==
LOC: LABWHC1 12:56
PROVIDERS: ATTEND Family Medicine
DX: Z00.01 Encounter for general adult medical examination with abnormal findings (principal)
CPT/HCPCS: 36415; 80053; 80061; 81003; 84443; 85025; 85610; 85730

== ENCOUNTER 2019-07-17 17:39 | Emergency (ER) | payer OTHER ==
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
[2019-07-17] MEDS ORDERED: MORPHINE SULFATE 4 MG/ML SYRINGE IVP STA (19:12)
[2019-07-17] MEDS ORDERED: ONDANSETRON 4 MG/2 ML VIAL IVP STA (19:12)
[2019-07-17 19:34] LABS: Appearance,Urine Clear (Clear); Bilirubin,Urine Negative (Negative); Blood,Urine Negative (Negative); Color,Urine Yellow; Glucose,Urine (UA) Negative (Negative); Ketones,Urine Negative (Negative); Leukocyte Esterase,Urine Negative (Negative); Nitrite,Urine Negative (Negative); Protein,Urine Negative (Negative); Specific Gravity,Urine 1.021 (1.001-1.035); Urobilinogen,Urine <2.0 mg/dL (<2.0)
[2019-07-17 19:38] LABS: ALT 10 U/L (4-34); AST 34 U/L (14-36); African American GFR (CKD) >90 (>60 ml/min/1.73 sqM); Albumin 4.5 g/dL (3.5-5.0); Alkaline Phosphatase 69 U/L (38-126); Amylase 57 U/L (30-110); Anion Gap 11 mmol/L; Blood Urea Nitrogen 17 mg/dL (7-17); Calcium 9.6 mg/dL (8.4-10.2); Carbon Dioxide 16 mmol/L (22-30); Chloride 112 mmol/L (98-107); Glucose 86 mg/dL (74-99); Non-African American GFR(CKD) 83 (>60 ml/min/1.73 sqM); Potassium 4.5 mmol/L (3.5-5.1); Sodium 139 mmol/L (137-145); Total Bilirubin 0.7 mg/dL (0.2-1.3)
[2019-07-17 19:53] LABS: Basophils # (A) 0.1 k/uL (0-0.2); Basophils % (A) 1 %; Eosinophils # (A) 0.2 k/uL (0-0.7); Eosinophils % (A) 1 %; HCT 47.1 % (34.0-46.0); HGB 16.5 gm/dL (11.4-16.0); Lymphocytes # (A) 5.3 k/uL (1.0-4.8); Lymphocytes % (A) 46 %; MCV 88.7 fL (80.0-100.0); Mean Platelet Volume 9.5; Monocytes # (A) 0.7 k/uL (0-1.0); Monocytes % (A) 6 %; Neutrophils # (A) 5.2 k/uL (1.3-7.7); Neutrophils % (A) 45 %; Platelet Count 508 k/uL (150-450); RBC 5.31 m/uL (3.80-5.40); RDW 12.9 % (11.5-15.5); WBC 11.7 k/uL (3.8-10.6)
--- NOTE | 2019-07-17 20:27 | CT ---
EXAMINATION TYPE: CT abdomen pelvis w con DATE OF EXAM: 07/17/2019 COMPARISON: 01/15/2019 HISTORY: RLQ pain CT DLP: 2162.4 mGycm Automated exposure control for dose reduction was used. CONTRAST: Performed with IV Contrast, patient injected with 100 mL of Isovue 300. Lung bases are clear. There is no pleural effusion. There are surgical clips at the anterior stomach. Liver appears normal. Spleen is absent. There is no pancreatic mass. There are clips from cholecyste ctomy. There is catheter noted in the upper abdomen this extends over the lower anterior chest and to the right mid abdomen adjacent to the liver. There is no adrenal mass. Kidneys show satisfactory contrast opacification. There is no hydronephrosi s. There is 3 mm calculus lower pole left kidney. There is no retroperitoneal adenopathy. Ureters are not dilated. Bladder distends smoothly. There is no inguinal hernia. There is hysterectomy. There is no mesenteric edema. There is no ascites or free air. There is no sign of a bowel obstruction. Appen vida is posterior and appears normal. Lumbar vertebra appear intact. Bony pelvis is intact. IMPRESSION: Previous surgery. No sign of acute abdomen and pelvis. No adverse change compared to old exam. Left r enal calculus unchanged.
[2019-07-17 20:40] VITALS: RESP 18
[2019-07-17 23:41] VITALS: BP 124/76; PULSE 73; TEMP 98
== END 2019-07-17 23:41 | disposition home or self-care (01) ==
LOC: EC 17:39
DX: R10.31 Right lower quadrant pain (principal); D72.829 Elevated white blood cell count, unspecified; E86.0 Dehydration; K59.00 Constipation, unspecified; K21.9 Gastro-esophageal reflux disease without esophagitis; R50.9 Fever, unspecified; Z79.899 Other long term (current) drug therapy; Z91.048 Other nonmedicinal substance allergy status; Z88.5 Allergy status to narcotic agent; Z87.442 Personal history of urinary calculi; Z90.49 Acquired absence of other specified parts of digestive tract; Z87.891 Personal history of nicotine dependence; Z90.710 Acquired absence of both cervix and uterus; Z86.14 Personal history of Methicillin resistant Staphylococcus aureus infection
CPT/HCPCS: 36415; 80053; 82150; 83605; 83690; 85025; 81003; 87040; 87502; 74177; 96374; 96375; 99284; J2270; J2405; Q9967

== ENCOUNTER → 2020-02-20 | Outpatient (CLI) | payer OTHER ==
[2020-02-20 11:01] LABS: Basophils # (A) 0.1 k/uL (0-0.2); Basophils % (A) 1 %; Eosinophils # (A) 0.1 k/uL (0-0.7); Eosinophils % (A) 1 %; HCT 45.5 % (34.0-46.0); Lymphocytes # (A) 4.2 k/uL (1.0-4.8); Lymphocytes % (A) 44 %; MCH 30.3 pg (25.0-35.0); MCHC 32.9 g/dL (31.0-37.0); Mean Platelet Volume 9.4; Monocytes # (A) 0.5 k/uL (0-1.0); Monocytes % (A) 6 %; Neutrophils # (A) 4.5 k/uL (1.3-7.7); Neutrophils % (A) 47 %; Platelet Count 409 k/uL (150-450); RBC 4.95 m/uL (3.80-5.40); RDW 13.4 % (11.5-15.5); WBC 9.6 k/uL (3.8-10.6)
[2020-02-20 20:45] LABS: ALT 10 U/L (8-44); AST 17 U/L (13-35); African American GFR (CKD) 104.7 (60.0-200.0); Albumin/Globulin Ratio 1.91 (1.60-3.17); Alkaline Phosphatase 57 U/L (41-126); C Reactive Protein <0.4 mg/dL (0.0-0.8); Calcium 9.5 mg/dL (8.7-10.3); Carbon Dioxide 18.7 mmol/L (21.6-31.8); Chloride 114 mmol/L (96-109); Globulin 2.2 g/dL (1.6-3.3); Glucose 94 mg/dL (70-110); Non-African American GFR(CKD) 90.3 (60.0-200.0); Rheumatoid Factor, Qnt <4 IU/mL (0-13); Sodium 139 mmol/L (135-145); Total Bilirubin 0.6 mg/dL (0.3-1.2); Total Protein 6.4 g/dL (6.2-8.2)
[2020-02-20 20:51] LABS: Erythrocyte Sedimentation Rate 5 mm/Hr (0-20)
[2020-02-20 22:23] LABS: Cardiolipin Ab IgG Interp NEGATIVE (NEGATIVE); Cardiolipin Ab IgM Interp NEGATIVE (NEGATIVE); Cardiolipin IgA Antibody 0.9 U/mL; Cardiolipin IgM Antibody <0.2 U/mL; Cyclic Citrull Pep IgG Unit <0.5 U/mL; Cyclic Citrullinated Pep IgG NEGATIVE (NEGATIVE)
[2020-02-20 23:29] LABS: INR 0.97 (0.90-1.11); Partial Thromboplastin Time 31.5 sec (24.7-29.9); Prothrombin Time 10.4 sec (9.9-11.9)
[2020-02-21 11:42] LABS: Protein, Total 6.4 g/dL (6.2-8.2)
[2020-02-21 13:01] LABS: C-ANCA <1:20 Titer (<1:20)
[2020-02-21 13:15] LABS: Albumin 3.85 g/dL (3.80-4.90)
[2020-02-21 15:35] LABS: Hepatitis A Antibody IgM Non-Reactive (Non-Reactive); Hepatitis B Core IgM Non-Reactive (Non-Reactive); Hepatitis B Surface Antigen Non-Reactive (Non-Reactive); Hepatitis C IgG Antibody Non-Reactive (Non-Reactive)
== END | disposition home or self-care (01) ==
LOC: LABWHC1 09:20
PROVIDERS: ATTEND Family Medicine
DX: L08.0 Pyoderma (principal); R10.84 Generalized abdominal pain; M25.50 Pain in unspecified joint
CPT/HCPCS: 36415; 80053; 80074; 84165; 85025; 85610; 85652; 85730; 86038; 86140; 86147; 86200; 86255; 86431; 86618; 86671; 86780

== ENCOUNTER 2020-12-16 14:57 | Emergency (ER) | payer MEDICARE, OTHER ==
[2020-12-16 15:40] VITALS: TEMP 98.3
[2020-12-16] MEDS ORDERED: METOCLOPRAMIDE 5 MG/ML 2 ML VIAL IVP STA (16:18)
[2020-12-16] MEDS ORDERED: MORPHINE SULFATE 4 MG/ML SYRINGE IV STA (16:18)
[2020-12-16] MEDS ORDERED: SODIUM CHLORIDE 0.9% 1,000 ML IV STA (16:19)
[2020-12-16] MEDS ORDERED: diphenhydrAMINE 50 MG/ML 1 ML VIAL IVP STA (16:19)
[2020-12-16 17:26] VITALS: BP 145/71; PULSE 61; RESP 16
--- NOTE | 2020-12-16 17:39 | CT ---
EXAMINATION TYPE: CT brain wo con DATE OF EXAM: 12/16/2020 COMPARISON: 07/07/2018. HISTORY: headache CT DLP: 1111.4 mGycm. Automated Exposure Control for Dose Reduction was Utilized. TECHNIQUE: CT scan of the head is performed without contrast. FINDINGS: There is interval placement of right frontal approach ventriculostomy catheter with tip t erminating in the left anterior horn. There is mild dilatation of the left lateral ventricle and deco mpressed right lateral ventricle slitlike appearance. No acute intracranial hemorrhage, mass effect, or midline shift identified. The sulci are within normal limits in size. The globes are intact and the visualized sinuses are clear. IMPRESSION: Interval right frontal approach ventricular ostomy catheter with mild dilatation of the left lateral ventricle and decompressed right ventricle. Catheter malfunction cannot be excluded. No acute intracranial hemorrhage.
[2020-12-16 17:41] LABS: Appearance,Urine Cloudy (Clear); Bacteria,Urine Few /hpf; Bilirubin,Urine Negative (Negative); Blood,Urine Negative (Negative); Color,Urine Light Yellow; Glucose,Urine (UA) Negative (Negative); Ketones,Urine Negative (Negative); Leukocyte Esterase,Urine Negative (Negative); Mucus,Urine Occasional /hpf; Nitrite,Urine Negative (Negative); PH, Urine 6.5 (5.0-8.0); Protein,Urine Negative (Negative); RBC,Urine 3 /hpf (0-5); Squamous Epithelial Cell,Urine 1 /hpf (0-4); Urobilinogen,Urine <2.0 mg/dL (<2.0); WBC,Urine 2 /hpf (0-5)
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
[2020-12-16 17:47] LABS: Basophils # (A) 0.1 k/uL (0-0.2); Basophils % (A) 1 %; Eosinophils # (A) 0.2 k/uL (0-0.7); Eosinophils % (A) 1 %; HCT 45.9 % (34.0-46.0); HGB 16.4 gm/dL (11.4-16.0); Lymphocytes # (A) 4.9 k/uL (1.0-4.8); Lymphocytes % (A) 43 %; MCH 32.1 pg (25.0-35.0); MCHC 35.6 g/dL (31.0-37.0); MCV 90.2 fL (80.0-100.0); Mean Platelet Volume 9.5; Monocytes # (A) 0.6 k/uL (0-1.0); Monocytes % (A) 5 %; Neutrophils # (A) 5.5 k/uL (1.3-7.7); Neutrophils % (A) 48 %; Platelet Count 460 k/uL (150-450); RDW 13.2 % (11.5-15.5); WBC 11.5 k/uL (3.8-10.6)
[2020-12-16 17:50] LABS: ALT 7 U/L (4-34); AST 23 U/L (14-36); African American GFR (CKD) >90 (>60 ml/min/1.73 sqM); Alkaline Phosphatase 65 U/L (38-126); Anion Gap 8 mmol/L; Blood Urea Nitrogen 15 mg/dL (7-17); Carbon Dioxide 25 mmol/L (22-30); Chloride 108 mmol/L (98-107); Glucose 95 mg/dL (74-99); Non-African American GFR(CKD) >90 (>60 ml/min/1.73 sqM); Sodium 141 mmol/L (137-145); Total Bilirubin 0.5 mg/dL (0.2-1.3); Total Protein 6.8 g/dL (6.3-8.2)
[2020-12-16] MEDS ORDERED: MORPHINE SULFATE 4 MG/ML SYRINGE IVP STA (18:06)
== END 2020-12-16 19:37 | disposition home or self-care (01) ==
LOC: EC 14:57
DX: G43.909 Migraine, unspecified, not intractable, without status migrainosus (principal); K21.9 Gastro-esophageal reflux disease without esophagitis; M19.90 Unspecified osteoarthritis, unspecified site; F41.9 Anxiety disorder, unspecified; Z79.1 Long term (current) use of non-steroidal anti-inflammatories (NSAID); Z79.899 Other long term (current) drug therapy; Z88.5 Allergy status to narcotic agent; Z90.79 Acquired absence of other genital organ(s); Z90.49 Acquired absence of other specified parts of digestive tract; Z98.84 Bariatric surgery status; Z82.49 Family history of ischemic heart disease and other diseases of the circulatory system; E66.9 Obesity, unspecified; Z68.38 Body mass index [BMI] 38.0-38.9, adult
CPT/HCPCS: 36415; 80053; 85025; 81001; 70450; 96374; 96375 ×2; 96376; 96361; 99284; J2270; J1200; J2765

== ENCOUNTER → 2021-08-19 | Outpatient (CLI) | payer MEDICARE, OTHER ==
[2021-08-19 14:42] LABS: Basophils # (A) 0.09 X 10*3/uL (0.00-0.10); Basophils % (A) 0.9 %; Eosinophils # (A) 0.23 X 10*3/uL (0.04-0.35); Eosinophils % (A) 2.4 %; HCT 46.6 % (37.2-46.3); HGB 15.4 g/dL (12.0-15.0); Immature Grans, Automated 0.3 %; Lymphocytes # (A) 4.23 X 10*3/uL (0.90-5.00); Lymphocytes % (A) 43.3 %; MCH 30.3 pg (27.0-32.0); MCV 91.6 fL (80.0-97.0); Mean Platelet Volume 12.6 fL (9.5-12.2); Monocytes % (A) 7.2 %; NRBC Per 100 WBC 0 /100 WBCS (0.0-0.0); Neutrophils # (A) 4.49 X 10*3/uL (1.80-7.70); Neutrophils % (A) 45.9 %; Platelet Count 357 X 10*3/uL (140-440); RBC 5.09 X 10*6/uL (4.10-5.20); RDW 12.5 % (11.5-14.5); WBC 9.77 X 10*3/uL (4.50-10.00)
[2021-08-19 15:25] LABS: Chol/HDL Ratio 6.57 Ratio; LDL Cholesterol,Calculated 111.7 mg/dL (0.0-131.0)
[2021-08-19 15:30] LABS: ALT 10 U/L (8-44); AST 25 U/L (13-35); African American GFR (CKD) 103.9 (60.0-200.0); Albumin 4.1 g/dL (3.8-4.9); Albumin/Globulin Ratio 1.64 (1.60-3.17); Alkaline Phosphatase 65 U/L (41-126); BUN/Creat Ratio 17.25 Ratio (12.00-20.00); Blood Urea Nitrogen 13.8 mg/dL (9.0-27.0); Calcium 9.4 mg/dL (8.7-10.3); Carbon Dioxide 17.6 mmol/L (20.0-27.5); Chloride 111 mmol/L (96-109); Globulin 2.5 g/dL (1.6-3.3); Glucose 96 mg/dL (70-110); Non-African American GFR(CKD) 89.7 (60.0-200.0); Potassium 4.6 mmol/L (3.5-5.5); Sodium 138 mmol/L (135-145); Total Protein 6.6 g/dL (6.2-8.2)
== END | disposition home or self-care (01) ==
LOC: LABWHC1 08:24
PROVIDERS: ATTEND Family Medicine
DX: Z00.01 Encounter for general adult medical examination with abnormal findings (principal); G47.09 Other insomnia; R53.83 Other fatigue; G93.2 Benign intracranial hypertension; Z13.220 Encounter for screening for lipoid disorders; G43.709 Chronic migraine without aura, not intractable, without status migrainosus
CPT/HCPCS: 36415; 80053; 80061; 82306; 84443; 85025

== ENCOUNTER 2022-04-25 07:33 | Emergency (ER) | payer MEDICARE, OTHER ==
[2022-04-25 07:40] VITALS: RESP 18
[2022-04-25] MEDS ORDERED: diphenhydrAMINE 50 MG/ML 1 ML VIAL IVP STA (07:55)
[2022-04-25] MEDS ORDERED: SODIUM CHLORIDE 0.9% 1,000 ML IV STA (07:55)
[2022-04-25] MEDS ORDERED: PROCHLORPERAZINE INJ 10 MG/2 ML VIAL IVP STA (07:55)
[2022-04-25] MEDS ORDERED: KETOROLAC 15 MG/ML 1 ML VIAL IVP STA (07:55)
[2022-04-25] MEDS ORDERED: LIDOCAINE 5% PATCH TOPICAL STA (07:56)
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
--- NOTE | 2022-04-25 08:45 | CT ---
EXAMINATION TYPE: CT cervical spine wo con CT DLP: 555.8 mGycm, Automated exposure control for dose reduction was used. DATE OF EXAM: 04/25/2022 8:22 AM COMPARISON: 04/11/2017. CLINICAL INDICATION:Female, 46 years old with history of neck pain, prior surgery; neck pain TECHNIQUE: Axial CT images from the skull base to the inferior aspect of T2 we obtained without intra venous contrast. Coronal and sagittal reformatted images were also reviewed. FINDINGS: Fracture: None. Osseous structures: Fixation hardware at C5-C6 and C7. Hardware is intact. Minimal osteophyte format ion along the spine. Vertebral alignment: Alignment within normal limits. Spinal canal/Neural Foramina: No evidence of significant spinal canal narrowing. No evidence for sign ificant neural foraminal stenosis. Neck soft tissues: Prevertebral soft tissues are within normal limits. Other: The airway is patent. The lung apices are clear. Ventricular catheter tubing noted. Tubing taylor ears intact. IMPRESSION: 1. No evidence of cervical spine fracture. 2. Minimal multilevel degenerative disc disease.
[2022-04-25 09:23] VITALS: BP 132/68; PULSE 76; TEMP 97.9
== END 2022-04-25 09:15 | disposition home or self-care (01) ==
LOC: EC 07:33
DX: S16.1XXA Strain of muscle, fascia and tendon at neck level, initial encounter (principal); G43.909 Migraine, unspecified, not intractable, without status migrainosus; K21.9 Gastro-esophageal reflux disease without esophagitis; F41.9 Anxiety disorder, unspecified; Z87.891 Personal history of nicotine dependence; Z91.048 Other nonmedicinal substance allergy status; Z88.8 Allergy status to other drugs, medicaments and biological substances; Z79.899 Other long term (current) drug therapy; X58.XXXA Exposure to other specified factors, initial encounter
CPT/HCPCS: 72125; 99283; 96374; 96375 ×2; 96361; J1200; J0780; J1885

== ENCOUNTER 2023-01-20 14:18 | Emergency (ER) | payer MEDICARE, OTHER ==
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
[2023-01-20 16:12] VITALS: BP 137/81; PULSE 76; RESP 18; TEMP 98
[2023-01-20 16:17] LABS: HCT 46.5 % (34.0-46.0); HGB 16.4 gm/dL (11.4-16.0); MCHC 35.2 g/dL (31.0-37.0); MCV 88.2 fL (80.0-100.0); Mean Platelet Volume 10.2; Platelet Count 360 k/uL (150-450); RBC 5.27 m/uL (3.80-5.40); WBC 11.6 k/uL (3.8-10.6)
[2023-01-20 16:22] LABS: Appearance,Urine Cloudy (Clear); Bacteria,Urine Occasional /hpf; Bilirubin,Urine Negative (Negative); Blood,Urine Negative (Negative); Color,Urine Colorless; Glucose,Urine (UA) Negative (Negative); Ketones,Urine Negative (Negative); Leukocyte Esterase,Urine Negative (Negative); Mucus,Urine Rare /hpf; Nitrite,Urine Negative (Negative); PH, Urine 6.5 (5.0-8.0); Protein,Urine Negative (Negative); RBC,Urine 1 /hpf (0-5); Specific Gravity,Urine 1.014 (1.001-1.035); Squamous Epithelial Cell,Urine 3 /hpf (0-4); Urobilinogen,Urine <2.0 mg/dL (<2.0); WBC,Urine 1 /hpf (0-5)
[2023-01-20 16:27] LABS: ALT 12 U/L (4-34); AST 30 U/L (14-36); African American GFR (CKD) 87 (>60 ml/min/1.73 sqM); Alkaline Phosphatase 80 U/L (38-126); Anion Gap 9 mmol/L; Blood Urea Nitrogen 18 mg/dL (7-17); Calcium 9.9 mg/dL (8.4-10.2); Carbon Dioxide 22 mmol/L (22-30); Chloride 112 mmol/L (98-107); Glucose 90 mg/dL (74-99); Lipase 143 U/L (23-300); Non-African American GFR(CKD) 75 (>60 ml/min/1.73 sqM); Potassium 4.4 mmol/L (3.5-5.1); Sodium 143 mmol/L (137-145); Total Bilirubin 0.5 mg/dL (0.2-1.3); Total Protein 7.1 g/dL (6.3-8.2)
[2023-01-20 16:58] LABS: Eosinophils # (M) 0.23 k/uL (0-0.7); Lymphocytes # (M) 7.08 k/uL (1.0-4.8); Monocytes # (M) 0.58 k/uL (0-1.0); Neutrophils # (M) 3.71 k/uL (1.3-7.7); Neutrophils % (M) 32 %; Nucleated Red Blood Cells 0 /100 WBC (0-0); Total Cells Counted 100
[2023-01-20 16:59] LABS: Large Platelets Present; Polychromasia Present
[2023-01-20] MEDS ORDERED: ONDANSETRON 4 MG/2 ML VIAL IVP STA (17:50)
[2023-01-20] MEDS ORDERED: SODIUM CHLORIDE 0.9% 1,000 ML IV ONE (17:50)
[2023-01-20] MEDS ORDERED: KETOROLAC 15 MG/ML 1 ML VIAL IVP STA (17:50)
--- NOTE | 2023-01-20 18:57 | US ---
EXAMINATION TYPE: US gallbladder DATE OF EXAM: 01/20/2023 COMPARISON: CT: 07/17/19 CLINICAL INDICATION: Female, 47 years old with history of RUQ pain; RUQ pain x 4 days. PA concerned f or choledocholithiasis TECHNIQUE: Multiple sonographic images of the right upper quadrant are obtained. FINDINGS: EXAM MEASUREMENTS: Liver Length: 15.3 cm Gallbladder Wall: Surgically absent CBD: 0.46 cm Right Kidney: 10.8 x 6.2 x 5.2 cm CORRECTIONS CASEWORKER NOTES: Pancreas: Tail limited due to bowel gas. Parts visualized appear wnl Liver: wnl Gallbladder: Surgically absent Evidence for sonographic Cm's sign: No CBD: Echogenic foci vs artifact seen in the CBD, however there does not appear to be posterior shado wing. See image 45 Right Kidney: wnl IMPRESSION: Suggestion of internal debris within the common bile duct on a single image. Further evaluation with MRCP could provide further evaluation for choledocholithiasis.
== END 2023-01-20 19:49 | disposition home or self-care (01) ==
LOC: EC 14:18
DX: R10.11 Right upper quadrant pain (principal); K21.9 Gastro-esophageal reflux disease without esophagitis; M19.90 Unspecified osteoarthritis, unspecified site; F41.9 Anxiety disorder, unspecified; Z87.891 Personal history of nicotine dependence; Z79.899 Other long term (current) drug therapy; Z88.8 Allergy status to other drugs, medicaments and biological substances
CPT/HCPCS: 36415; 80053; 83605; 83690; 85025; 81001; 76705; 99284; 96374; 96375; 96361; J2405; J1885

== ENCOUNTER → 2023-06-16 | Outpatient (CLI) | payer MEDICARE ==
--- NOTE | 2023-06-29 19:56 | MM ---
Reason for Exam: Screening (asymptomatic). Last mammogram was performed 1 year(s) and 3 month(s) ago. Patient History: Menarche at age 10. First Full-Term at age 20. Hysterectomy at age 40. Patient used Hormonal Contraceptives for 10 years. 09/15/2015, Benign Core Biopsy on the left side. Paternal cousin had breast cancer. Paternal cousin had breast cancer. Paternal cousin had breast cancer. Maternal aunt had breast cancer. Risk Values: Carina 5 year model risk: 1.0%. NCI Lifetime model risk: 9.1%. Prior Study Comparison: 08/15/2015 Bilateral Screening Mammogram, [facility]. 02/10/2017 Bilateral Diagnostic Mammogram, [facility]. 09/08/2017 Right Diagnostic Mammogram, [facility]. 04/05/2022 Bilateral Screening Mammogram, [facility]. Tissue Density: There are scattered fibroglandular densities. Findings: Analyzed By CAD. Chronic nodularity on the left. There is no suspicious group of microcalcifications or new suspicious mass in either breast. Overall Assessment: Benign, BI-RAD 2 Management: Screening Mammogram of both breasts in 1 year. . Patient should continue monthly self-breast exams. A clinical breast exam by your physician is recommended on an annual basis. This exam should not preclude additional follow-up of suspicious palpable abnormalities. Note on Carina scores and lifetime risk: 1. A Carina score greater than 3% is considered moderate risk. If this is the case, consider specialist referral to assess eligibility for a risk reducing agent. 2. If overall lifetime risk for the development of breast cancer is 20% or higher, the patient may qualify for future screening with alternating mammogram and breast MRI. Electronically signed and approved by: Marguerite Rivas M.D. Radiologist
== END | disposition home or self-care (01) ==
LOC: RADMAMWWP 13:20
PROVIDERS: ATTEND Family Medicine
DX: Z12.31 Encounter for screening mammogram for malignant neoplasm of breast (principal); Z80.3 Family history of malignant neoplasm of breast
CPT/HCPCS: 77063; 77067

== ENCOUNTER → 2024-03-28 | Outpatient (CLI) | payer MEDICARE | END | disposition home or self-care (01) | LOC: LABWHC1 12:17 | PROVIDERS: ATTEND Internal Medicine | DX: L50.9 Urticaria, unspecified (principal) | CPT/HCPCS: 36415; 83520 ==

== ENCOUNTER → 2024-11-22 | Outpatient (CLI) | payer MEDICARE ==
--- NOTE | 2024-11-22 11:22 | FL ---
EXAMINATION TYPE: FL barium swallow DATE OF EXAM: 11/22/2024 COMPARISON: None CLINICAL INDICATION: Female, 49 years old with history of R13.10 dysphagia; PH, TECHNIQUE: A double contrast esophagram is performed utilizing air and barium. A total of 42 second s of fluoroscopic time was utilized during procedure and 29 images obtained. Total dose area product (DAP) in uGy*m?, mGy*cm? (or similar) Not provided. COMPARISON: None FINDINGS: Preliminary imaging demonstrates postsurgical change cervical spine. A VACATION GUIDE shunt catheter pete spected. Surgical clips gallbladder fossa. The esophagus shows normal motility and emptying into the stomach. No evidence of hiatal hernia or stricture noted. No significant gastroesophageal reflux was seen during real time performance of this study. IMPRESSION: No significant abnormality is seen to account for patient's symptoms. [facility], , 11/22/2024 11:20 AM
== END | disposition home or self-care (01) ==
LOC: RADFLMAIN 10:22
PROVIDERS: ATTEND Family Medicine
DX: R13.10 Dysphagia, unspecified (principal); R22.1 Localized swelling, mass and lump, neck
CPT/HCPCS: 74220